=== PATIENT | male | born 1930 | race Two or more races ===

== ENCOUNTER 2016-12-05 18:20 | Inpatient (IN) | payer MEDICARE, MEDICAID ==
[~2016-12-05] VITALS: Ht 170.2 cm; Wt 73.7 kg
[2016-12-05 19:23] LABS: Basophils # (auto) 0.1 uL; Basophils % (auto) 0.7 % (0.0-2.0); CONDITION Y; Eosinophils # (auto) 0.4 uL; Eosinophils % (auto) 5.4 % (0.0-7.0); Hematocrit 40.2 % (41.0-53.0); Hemoglobin 13.6 g/dL (13.5-17.5); Lymphocytes # (auto) 1.7 uL; Lymphocytes % (auto) 23.3 % (10.0-50.0); Mean Corpuscular Hemoglobin 30.6 pg (28.0-32.0); Mean Corpuscular Hgb Conc. 33.9 g/dL (32.0-36.0); Mean Corpuscular Volume 90.5 fL (80.0-100.0); Mean Platelet Volume 7.7 fL (7.4-10.4); Monocytes # (auto) 0.6 uL; Monocytes % (auto) 7.8 % (0.0-12.0); Neutrophils # (auto) 4.7 uL; Neutrophils % (auto) 62.8 % (37.0-80.0); Platelet Count (auto) 360 10^3/uL (140-450); Red Cell Distribution Width 14.5 % (11.6-16.0); White Blood Cell 7.5 10^3/uL (4.4-10.8)
[2016-12-05 19:38] LABS: INR 1.31 (0.9-1.15); Partial Thromboplastin Time 37.4 sec (22.64-33.71)
[2016-12-05 19:39] LABS: Prothrombin Time 14.3 sec (9.37-12.3)
[2016-12-05 19:56] LABS: Albumin 3.6 g/dL (3.4-5.0); BUN/Creatinine Ratio 20.3; Potassium 3.7 mmol/L (3.5-5.1); Total Protein 7.4 g/dL (6.4-8.2)
[2016-12-06] MEDS ORDERED: FURO20TA PO (01:58)
[2016-12-06] MEDS ORDERED: TAMS0.4C36 PO (01:58)
[2016-12-06] MEDS ORDERED: CARV6.2551 PO (01:59)
[2016-12-06] MEDS ORDERED: RIV15T PO (01:59)
[2016-12-06] MEDS ORDERED: DEXTROSE (50%) 50ML SYRG IV PRN (02:15)
[2016-12-06] MEDS ORDERED: ACETAMINOPHEN 325 MG TAB PO PRN (02:15)
[2016-12-06] MEDS ORDERED: HYDROcodone-ACET 5/325MG TAB PO PRN (02:15)
[2016-12-06] MEDS ORDERED: NITROGLYCERIN 0.4 MG SL TAB SL PRN (02:15)
[2016-12-06] MEDS ORDERED: DOCUSATE SOD 100 MG CAP PO PRN (02:15)
[2016-12-06] MEDS ORDERED: TEMAZEPAM 15 MG CAP PO PRN (02:15)
[2016-12-06] MEDS ORDERED: ONDANSETRON HCL 4 MG/2 ML VIAL IV PRN (02:15)
[2016-12-06] MEDS ORDERED: MORPHINE SULF INJ 2 MG/ML SYRINGE 1ML IV PRN (02:15)
[2016-12-06 02:59] LABS: Urine Bilirubin Negative (Negative); Urine Blood Negative /uL (Negative); Urine Color Yellow (Yellow); Urine Glucose Normal (Normal); Urine Ketone Negative (Negative); Urine Mucus FEW (None Seen); Urine Nitrite Negative (Negative); Urine RBC 1 /hpf (0 - 3); Urine Squamous Epithelial Cell FEW /hpf (<5); Urine Urobilinogen Normal (Negative); Urine pH 5.5 (5.0-8.0)
[2016-12-06] MEDS ORDERED: cloNIDine HCL 0.1 MG TAB PO ONE (04:45)
[2016-12-06] MEDS: ACCU-CHEK COMFORT CURVE STRIP VI SCH ×3 (05:38→17:09)
[2016-12-06] MEDS: InsuLIN REG 1unit/0.01ml Soln (100units/ml) SC SCH ×3 (05:38→18:00)
[2016-12-06] MEDS ORDERED: LEVOFLOXACIN 500MG 100 ML IV ONE (09:53)
[2016-12-06] MEDS ORDERED: LEVOFLOXACIN 500MG 100 ML IV SCH ×3 (10:00→11:15)
[2016-12-06] MEDS ORDERED: FAMOTIDINE 20 MG TAB PO SCH (10:00)
[2016-12-06] MEDS ORDERED: ALBUTEROL SULF 2.5 MG/0.5ML(0.5%) NEB SOLN NEB PRN (10:00)
[2016-12-06] MEDS: ALBUTEROL SULF 2.5 MG/0.5ML(0.5%) NEB SOLN NEB SCH ×4 (10:00→23:06)
[2016-12-06] MEDS: IPRATROPIUM BROM 0.5 MG/2.5ML INH SOL NEB SCH ×4 (10:00→23:05)
[2016-12-06] MEDS ORDERED: FUROSEMIDE 20 MG TAB PO SCH (10:00)
[2016-12-06] MEDS ORDERED: IPRATROPIUM BROM 0.5 MG/2.5ML INH SOL NEB PRN (10:00)
[2016-12-06] MEDS ORDERED: ASPirin 81 mg TAB PO ONE (11:45)
[2016-12-06] MEDS ORDERED: CARVEDILOL 3.125 MG TAB PO ONE (11:45)
[2016-12-06] MEDS ORDERED: POTASSIUM CHL 20 Meq TABLET PO ONE (11:45)
[2016-12-06] MEDS ORDERED: NITROGLYCERIN 0.2MG/HR TOPICAL PATCH TD ONE (11:45)
[2016-12-06] MEDS ORDERED: ENALAPRIL MALEATE 2.5 MG TAB PO ONE (11:45)
[2016-12-06 12:08] LABS: B-Type Natriuretic Peptide 80.52 pg/mL (0-100)
[2016-12-06 12:26] LABS: Temperature: 23.7 C (20.0-25.0)
[2016-12-06 16:50] VITALS: BP 163/103
[2016-12-06 17:10] VITALS: BP 163/103
[2016-12-06] MEDS: RIVAROXABAN 15 MG TAB PO SCH (18:34)
[2016-12-06 18:56] VITALS: BP 163/103
[2016-12-06 20:00] VITALS: BP 135/84
[2016-12-06 21:47] VITALS: BP 135/84
[2016-12-06] MEDS: CARVEDILOL 3.125 MG TAB PO SCH (22:50)
[2016-12-07] MEDS: ACCU-CHEK COMFORT CURVE STRIP VI SCH ×3 (00:12→11:08)
[2016-12-07 04:30] VITALS: BP 169/89
[2016-12-07] MEDS: InsuLIN REG 1unit/0.01ml Soln (100units/ml) SC SCH ×3 (06:00→11:08)
[2016-12-07 06:42] LABS: Basophils # (auto) 0.1 uL; Basophils % (auto) 0.6 % (0.0-2.0); CONDITION Y; Eosinophils # (auto) 0.3 uL; Eosinophils % (auto) 3.3 % (0.0-7.0); Hematocrit 41.8 % (41.0-53.0); Hemoglobin 14.1 g/dL (13.5-17.5); Lymphocytes # (auto) 1.9 uL; Lymphocytes % (auto) 18.2 % (10.0-50.0); Mean Corpuscular Hemoglobin 30.5 pg (28.0-32.0); Mean Corpuscular Hgb Conc. 33.8 g/dL (32.0-36.0); Mean Corpuscular Volume 90.1 fL (80.0-100.0); Mean Platelet Volume 7.8 fL (7.4-10.4); Monocytes # (auto) 0.7 uL; Monocytes % (auto) 6.7 % (0.0-12.0); Neutrophils # (auto) 7.4 uL; Neutrophils % (auto) 71.2 % (37.0-80.0); Platelet Count (auto) 340 10^3/uL (140-450); Red Cell Distribution Width 13.9 % (11.6-16.0); White Blood Cell 10.4 10^3/uL (4.4-10.8)
[2016-12-07] MEDS: IPRATROPIUM BROM 0.5 MG/2.5ML INH SOL NEB SCH ×3 (06:43→18:29)
[2016-12-07] MEDS: ALBUTEROL SULF 2.5 MG/0.5ML(0.5%) NEB SOLN NEB SCH ×2 (06:43→12:07)
[2016-12-07 07:07] LABS: Albumin 3.8 g/dL (3.4-5.0); BUN/Creatinine Ratio 18.3; Bilirubin, Total 1.3 mg/dL (0.2-1.0); Calcium 9.2 mg/dL (8.5-10.1); Potassium 3.6 mmol/L (3.5-5.1); Total Protein 7.6 g/dL (6.4-8.2)
[2016-12-07 07:19] LABS: B-Type Natriuretic Peptide 87.03 pg/mL (0-100)
[2016-12-07 07:22] LABS: Temperature: 23.9 C (20.0-25.0)
[2016-12-07 08:00] VITALS: BP 142/92
[2016-12-07] MEDS: CARVEDILOL 3.125 MG TAB PO SCH (09:32)
[2016-12-07] MEDS ORDERED: POTASSIUM CHL 20 Meq TABLET PO SCH (10:00)
[2016-12-07] MEDS ORDERED: NITROGLYCERIN 0.2MG/HR TOPICAL PATCH TD SCH (10:00)
[2016-12-07] MEDS ORDERED: LEVOFLOXACIN 500MG 100 ML IV SCH (10:00)
[2016-12-07] MEDS ORDERED: FUROSEMIDE 40 MG/4 ML VIAL IV SCH (10:00)
[2016-12-07] MEDS ORDERED: ENALAPRIL MALEATE 2.5 MG TAB PO SCH (10:00)
[2016-12-07] MEDS: ASPirin 81 mg TAB PO SCH (10:34)
[2016-12-07] MEDS: FAMOTIDINE 20 MG TAB PO SCH (10:34)
[2016-12-07] MEDS: hydrALAZINE HCL 25 MG TAB PO SCH ×2 (10:37→22:26)
[2016-12-07 12:00] VITALS: BP 132/78
[2016-12-07] MEDS: SODIUM CHLORIDE 0.9% 1,000 ML IV SCH (16:00)
[2016-12-07] MEDS ORDERED: LORazepam 2MG/ML-1ML VIAL IV PRN (16:00)
[2016-12-07 17:20] VITALS: BP 130/74
[2016-12-07] MEDS: TAMSULOSIN HYDROCHLORIDE 0.4 MG CAP PO SCH (18:36)
[2016-12-07] MEDS: RIVAROXABAN 15 MG TAB PO SCH (18:37)
[2016-12-07 22:14] VITALS: BP 147/79
[2016-12-07] MEDS: ATORVASTATIN 20 MG TAB PO SCH (22:26)
[2016-12-08] VITALS (7 sets, daily range): BP systolic 130–152; BP diastolic 70–105
[2016-12-08] MEDS: IPRATROPIUM BROM 0.5 MG/2.5ML INH SOL NEB SCH ×4 (00:13→18:33)
[2016-12-08] MEDS: ALBUTEROL SULF 2.5 MG/0.5ML(0.5%) NEB SOLN NEB SCH ×4 (00:14→18:33)
[2016-12-08 07:23] LABS: Calcium 8.9 mg/dL (8.5-10.1); Magnesium 2.4 mg/dL (1.6-2.6); Potassium 3.3 mmol/L (3.5-5.1)
[2016-12-08] MEDS: FAMOTIDINE 20 MG TAB PO SCH (09:56)
[2016-12-08] MEDS: hydrALAZINE HCL 25 MG TAB PO SCH ×2 (09:56→22:20)
[2016-12-08] MEDS: ASPirin 81 mg TAB PO SCH (09:56)
[2016-12-08] MEDS: SODIUM CHLORIDE 0.9% 1,000 ML IV SCH (11:00)
[2016-12-08] MEDS ORDERED: LEVOFLOXACIN 500MG 100 ML IV SCH (11:15)
[2016-12-08] MEDS ORDERED: POTASSIUM CHL 10 Meq TABLET PO ONE (13:45)
[2016-12-08] MEDS: RIVAROXABAN 15 MG TAB PO SCH (18:36)
[2016-12-08] MEDS: TAMSULOSIN HYDROCHLORIDE 0.4 MG CAP PO SCH (18:36)
[2016-12-08] MEDS: ATORVASTATIN 20 MG TAB PO SCH (22:21)
[2016-12-09] MEDS: ALBUTEROL SULF 2.5 MG/0.5ML(0.5%) NEB SOLN NEB SCH ×4 (00:32→19:05)
[2016-12-09] MEDS: IPRATROPIUM BROM 0.5 MG/2.5ML INH SOL NEB SCH ×4 (00:32→19:05)
[2016-12-09] MEDS: SODIUM CHLORIDE 0.9% 1,000 ML IV SCH (01:20)
[2016-12-09 05:00] VITALS: BP 123/76
[2016-12-09 06:44] LABS: BUN/Creatinine Ratio 23.8; Calcium 8.7 mg/dL (8.5-10.1); Potassium 3.5 mmol/L (3.5-5.1)
[2016-12-09 08:00] VITALS: BP 121/71
[2016-12-09 09:00] VITALS: BP 121/71
[2016-12-09] MEDS: hydrALAZINE HCL 25 MG TAB PO SCH (09:24)
[2016-12-09] MEDS: FAMOTIDINE 20 MG TAB PO SCH (09:24)
[2016-12-09 12:56] VITALS: BP 128/79
[2016-12-09] MEDS ORDERED: HYDR-2651 PO (14:03)
[2016-12-09] MEDS ORDERED: ATOR20TA50 PO (14:03)
[2016-12-09] MEDS ORDERED: FAM20T PO (14:03)
[2016-12-09 15:39] LABS: Temperature: 23.3 C (20.0-25.0)
[2016-12-09 16:27] VITALS: BP 128/79
[2016-12-09 16:56] VITALS: BP 129/93
[2016-12-09] MEDS: RIVAROXABAN 15 MG TAB PO SCH (17:43)
[2016-12-09] MEDS: TAMSULOSIN HYDROCHLORIDE 0.4 MG CAP PO SCH (17:43)
== END 2016-12-09 21:00 | DRG 299 ==
LOC: EDBD 18:20 → ER 18:29 → TELE 18:30 → TELE-CENTR 12-06 13:36
PROVIDERS: ADMIT Nurse Practitioner; ATTEND Internal Medicine
DX: I70.298 Other atherosclerosis of native arteries of extremities, other extremity (principal); N17.0 Acute kidney failure with tubular necrosis; D68.9 Coagulation defect, unspecified; J98.11 Atelectasis; I48.1 Persistent atrial fibrillation; I69.354 Hemiplegia and hemiparesis following cerebral infarction affecting left non-dominant side; M76.892 Other specified enthesopathies of left lower limb, excluding foot; S76.012A Strain of muscle, fascia and tendon of left hip, initial encounter; I48.2 Chronic atrial fibrillation; N18.3 Chronic kidney disease, stage 3 (moderate); J44.9 Chronic obstructive pulmonary disease, unspecified; E11.22 Type 2 diabetes mellitus with diabetic chronic kidney disease; I13.10 Hypertensive heart and chronic kidney disease without heart failure, with stage 1 through stage 4 chronic kidney disease, or unspecified chronic kidney disease; W18.39XA Other fall on same level, initial encounter; I67.2 Cerebral atherosclerosis; G30.9 Alzheimer's disease, unspecified; F02.80 Dementia in other diseases classified elsewhere, unspecified severity, without behavioral disturbance, psychotic disturbance, mood disturbance, and anxiety; Y93.89 Activity, other specified; Z79.01 Long term (current) use of anticoagulants; Z82.49 Family history of ischemic heart disease and other diseases of the circulatory system; Z83.3 Family history of diabetes mellitus; Y92.89 Other specified places as the place of occurrence of the external cause; Y99.8 Other external cause status
CPT/HCPCS: 36415; 70450; 70551; 71010; 73502; 80048; 80053; 80061; 81001; 82550; 82607; 82746; 82962; 83036; 83735; 83880; 84443; 84484; 85025; 85610; 85730; 93005; 93306; 93923; 94640; 94761; 95819; 96365; 97110; 97116; 97163; 97530; J1956

== ENCOUNTER 2017-04-15 16:05 | Emergency (ER) | payer MEDICARE, MEDICAID ==
[~2017-04-15 16:05] MED LIST: ATOR20TA50 PO; FAM20T PO; HYDR25TA35 PO; RIV15T PO; TAMS0.4C36 PO
[2017-04-15 16:55] LABS: Basophils # (auto) 0.1 uL; Basophils % (auto) 1.3 % (0.0-2.0); Eosinophils # (auto) 0.7 uL; Eosinophils % (auto) 7.1 % (0.0-7.0); Hematocrit 43.6 % (41.0-53.0); Hemoglobin 14.3 g/dL (13.5-17.5); Lymphocytes % (auto) 20.4 % (10.0-50.0); Mean Corpuscular Hemoglobin 30.4 pg (28.0-32.0); Mean Corpuscular Hgb Conc. 32.7 g/dL (32.0-36.0); Mean Platelet Volume 8.3 fL (6.9-10.8); Monocytes # (auto) 0.6 uL; Monocytes % (auto) 6.5 % (0.0-12.0); Neutrophils # (auto) 6.3 uL; Neutrophils % (auto) 64.7 % (37.0-80.0); Nucleated Red Blood Cells % 0.1 %; Platelet Count (auto) 310 10^3/uL (140-450); Red Cell Distribution Width 15.7 % (11.8-14.3); White Blood Cell 9.8 10^3/uL (4.4-10.8)
[2017-04-15 17:14] LABS: Albumin 3.7 g/dL (3.4-5.0); BUN/Creatinine Ratio 22.1; Magnesium 2.3 mg/dL (1.6-2.6); Potassium 3.8 mmol/L (3.5-5.1)
[2017-04-15 17:19] LABS: Bilirubin, Total 0.7 mg/dL (0.2-1.0); Total Protein 7.5 g/dL (6.4-8.2)
[2017-04-15 19:50] VITALS: BP 168/92
== END 2017-04-15 20:15 | disposition home or self-care (01) ==
LOC: ER 16:09
DX: I48.91 Unspecified atrial fibrillation (principal); J44.9 Chronic obstructive pulmonary disease, unspecified; E11.9 Type 2 diabetes mellitus without complications; I10 Essential (primary) hypertension; R74.8 Abnormal levels of other serum enzymes; M25.562 Pain in left knee; R42 Dizziness and giddiness; W18.39XA Other fall on same level, initial encounter; Y93.89 Activity, other specified; Y92.89 Other specified places as the place of occurrence of the external cause; Y99.8 Other external cause status; Z86.73 Personal history of transient ischemic attack (TIA), and cerebral infarction without residual deficits; Z79.899 Other long term (current) drug therapy
CPT/HCPCS: 36415; 70450; 72192; 73564; 80053; 81002; 83735; 84484; 85025; 93005

== ENCOUNTER 2017-04-21 18:16 | Emergency (ER) | payer MEDICARE, MEDICAID ==
[~2017-04-21] VITALS: Ht 170.2 cm; Wt 74.8 kg
[2017-04-21 18:29] VITALS: BP 139/76
[2017-04-21 19:48] LABS: Basophils # (auto) 0.1 uL; Basophils % (auto) 1.4 % (0.0-2.0); Eosinophils # (auto) 0.6 uL; Eosinophils % (auto) 7.4 % (0.0-7.0); Hematocrit 43.9 % (41.0-53.0); Hemoglobin 14.4 g/dL (13.5-17.5); Lymphocytes # (auto) 1.4 uL; Lymphocytes % (auto) 17.2 % (10.0-50.0); Mean Corpuscular Hemoglobin 30.3 pg (28.0-32.0); Mean Corpuscular Hgb Conc. 32.9 g/dL (32.0-36.0); Mean Corpuscular Volume 92.2 fL (80.0-100.0); Monocytes # (auto) 0.7 uL; Monocytes % (auto) 8.8 % (0.0-12.0); Neutrophils # (auto) 5.2 uL; Neutrophils % (auto) 65.2 % (37.0-80.0); Platelet Count (auto) 264 10^3/uL (140-450); Red Cell Distribution Width 14.8 % (11.8-14.3)
[2017-04-21 20:19] LABS: Albumin 3.8 g/dL (3.4-5.0); BUN/Creatinine Ratio 20.1; Bilirubin, Total 0.7 mg/dL (0.2-1.0); Calcium 8.8 mg/dL (8.5-10.1); Magnesium 2.4 mg/dL (1.6-2.6); Potassium 3.7 mmol/L (3.5-5.1); Total Protein 7.4 g/dL (6.4-8.2)
[2017-04-24] MEDS ORDERED: PRE1T PO (23:40)
[2017-04-24] MEDS ORDERED: ALBUAER3 IN (23:41)
[2017-04-24] MEDS ORDERED: DOXY-112 PO (23:43)
[2017-04-24] MEDS ORDERED: DOXY100C41 PO (23:43)
[2017-04-24] MEDS ORDERED: TIOTCAP IN (23:47)
== END 2017-04-22 00:10 | disposition left against medical advice (07) ==
LOC: ER 18:16
DX: R05 Cough (principal); R09.81 Nasal congestion; Z53.21 Procedure and treatment not carried out due to patient leaving prior to being seen by health care provider
CPT/HCPCS: 36415; 71010; 80053; 83735; 84484; 85025

== ENCOUNTER 2017-04-30 15:36 | Emergency (ER) | payer MEDICARE, MEDICAID ==
[~2017-04-30] VITALS: Ht 185.4 cm; Wt 90.7 kg
[~2017-04-30 15:36] MED LIST changes: +ALBUAER3 IN; +DOXY-112 PO; +PRE1T PO; +TIOTCAP IN
[2017-04-30 18:15] VITALS: BP 123/62
== END 2017-04-30 18:16 | disposition home or self-care (01) ==
LOC: EDBD 15:36 → ER 15:40
DX: R53.1 Weakness (principal); I48.91 Unspecified atrial fibrillation; J44.9 Chronic obstructive pulmonary disease, unspecified; N18.9 Chronic kidney disease, unspecified; I12.9 Hypertensive chronic kidney disease with stage 1 through stage 4 chronic kidney disease, or unspecified chronic kidney disease; E11.22 Type 2 diabetes mellitus with diabetic chronic kidney disease; I25.2 Old myocardial infarction; Z86.73 Personal history of transient ischemic attack (TIA), and cerebral infarction without residual deficits; Z79.899 Other long term (current) drug therapy

== ENCOUNTER 2017-07-04 22:00 | Inpatient (IN) | payer MEDICARE, MEDICAID ==
[~2017-07-04] VITALS: Ht 167.6 cm; Wt 77.1 kg
[2017-07-04 23:28] LABS: Basophils # (auto) 0.1 uL; Basophils % (auto) 0.9 % (0.0-2.0); Eosinophils # (auto) 0.1 uL; Eosinophils % (auto) 0.8 % (0.0-7.0); Hematocrit 39.4 % (41.0-53.0); Hemoglobin 13.2 g/dL (13.5-17.5); Lymphocytes # (auto) 1.4 uL; Lymphocytes % (auto) 10.5 % (10.0-50.0); Mean Corpuscular Hemoglobin 30.3 pg (28.0-32.0); Mean Corpuscular Hgb Conc. 33.4 g/dL (32.0-36.0); Mean Corpuscular Volume 90.7 fL (80.0-100.0); Monocytes # (auto) 0.8 uL; Monocytes % (auto) 6.2 % (0.0-12.0); Neutrophils # (auto) 10.8 uL; Neutrophils % (auto) 81.6 % (37.0-80.0); Platelet Count (auto) 281 10^3/uL (140-450); Red Blood Cells 4.35 10^6/uL (4.5-5.90); Red Cell Distribution Width 15.8 % (11.8-14.3); White Blood Cell 13.2 10^3/uL (4.4-10.8)
[2017-07-04 23:43] LABS: INR 1.15 (0.9-1.15); Partial Thromboplastin Time 38.9 sec (22.64-33.71); Prothrombin Time 12.5 sec (9.37-12.3)
[2017-07-04 23:49] LABS: Albumin 3.9 g/dL (3.4-5.0); Anion Gap 11 (5-15); Aspartate Aminotransferase 26 U/L (15-37); BUN/Creatinine Ratio 19.6; Blood Urea Nitrogen 30 mg/dL (7-18); Calcium 8.6 mg/dL (8.5-10.1); Carbon Dioxide 21 mmol/L (21-32); Chloride 105 mmol/L (98-107); GFR African American 56 mL/min; GFR Non-African American 46 mL/min; Glucose 102 mg/dL (74-106); Magnesium 1.9 mg/dL (1.6-2.6); Potassium 3.3 mmol/L (3.5-5.1); Sodium 137 mmol/L (136-145)
[2017-07-05 00:13] LABS: Alanine Aminotransferase 29 U/L (16-61); Alkaline Phosphatase 99 U/L (45-117); Bilirubin, Total 1.4 mg/dL (0.2-1.0); Blood Alcohol < 3.0 mg/dL (0-5); Total Protein 7.8 g/dL (6.4-8.2)
[2017-07-05 03:15] LABS: Urine Bacteria FEW /hpf (None Seen); Urine Blood Negative /uL (Negative); Urine Specific Gravity 1.016 (1.001-1.035); Urine WBC 1 /hpf (0 - 3)
[2017-07-05 03:31] LABS: Alcohol, Urine < 3.0 mg/dL (0-5); Amphetamine Screen, Urine NEGATIVE (NEGATIVE); Barbiturate Scree,Urine NEGATIVE (NEGATIVE); Benzodiazephine Screen, Urine NEGATIVE (NEGATIVE); Cannabinoid Screen, Urine NEGATIVE (NEGATIVE); Cocaine Screen, Urine NEGATIVE (NEGATIVE); Opiate Scree,Urine NEGATIVE (NEGATIVE); Phencyclidine Screen, Urine NEGATIVE (NEGATIVE)
[2017-07-05] MEDS ORDERED: cefTRIAXone 1GM/10ml IVPUSH 10 ML IV ONE (08:00)
[2017-07-05] MEDS ORDERED: AZITHROMYCIN 500MG/ 250ML 250 ML IV ONE (08:00)
[2017-07-05] MEDS ORDERED: ENOXAPARIN SOD 80 MG/0.8ML SYRINGE SC ONE (08:00)
[2017-07-05] MEDS ORDERED: POTASSIUM CHL 10% (20 MEQ/15ML) 15ml ORAL SOLN PO ONE (08:00)
[2017-07-05] MEDS ORDERED: DEXTROSE (50%) 50ML SYRG IV PRN (09:00)
[2017-07-05] MEDS ORDERED: MORPHINE SULFATE 4 MG/ML SYR/VIAL IV PRN ×2 (09:15)
[2017-07-05] MEDS ORDERED: NITROGLYCERIN 0.4 MG SL TAB SL PRN (09:15)
[2017-07-05] MEDS ORDERED: cloNIDine HCL 0.1 MG TAB PO PRN (09:15)
[2017-07-05] MEDS ORDERED: DOCUSATE SOD 100 MG CAP PO PRN (09:15)
[2017-07-05] MEDS ORDERED: ONDANSETRON HCL 4 MG/2 ML VIAL IV PRN (09:15)
[2017-07-05] MEDS ORDERED: buPROPion HCL 100 MG TAB PO ONE (09:15)
[2017-07-05] MEDS ORDERED: HYDROcodone-ACET 5/325MG TAB PO PRN (09:15)
[2017-07-05] MEDS ORDERED: ACETAMINOPHEN 325 MG TAB PO PRN (09:15)
[2017-07-05] MEDS ORDERED: PATIENTS OWN MEDICATION PO SCH (10:00)
[2017-07-05] MEDS ORDERED: FAMOTIDINE 20 MG TAB PO SCH (10:00)
[2017-07-05] MEDS ORDERED: PATIENTS OWN MEDICATION IN SCH (10:00)
[2017-07-05] MEDS: methylPREDNISolone SOD SUCC 40 MG/ML VL IV SCH ×3 (10:25→22:07)
[2017-07-05] MEDS: FAMOTIDINE 20 MG TAB PO SCH (10:25)
[2017-07-05] MEDS: MULTIPLE VITAMIN TAB PO SCH (10:25)
[2017-07-05] MEDS: InsuLIN REG 1unit/0.01ml Soln (100units/ml) SC SCH ×3 (11:30→23:15)
[2017-07-05] MEDS: ACCU-CHEK COMFORT CURVE STRIP VI SCH ×3 (11:45→23:15)
[2017-07-05] MEDS: ALBUTEROL SULF 2.5 MG/0.5ML(0.5%) NEB SOLN NEB SCH ×2 (13:07→19:30)
[2017-07-05] MEDS: IPRATROPIUM BROM 0.5 MG/2.5ML INH SOL NEB SCH ×2 (13:07→19:30)
[2017-07-05] MEDS: SODIUM CHLOR 0.9% PF (SALINE LOCK) 10ML VIAL IV SCH ×2 (14:00→22:07)
[2017-07-05 15:12] LABS: BUN/Creatinine Ratio 15.1; Calcium 8.7 mg/dL (8.5-10.1); Potassium 4.2 mmol/L (3.5-5.1)
[2017-07-05] MEDS: TAMSULOSIN HYDROCHLORIDE 0.4 MG CAP PO SCH (17:44)
[2017-07-05] MEDS: buPROPion HCL 100 MG TAB PO SCH (17:45)
[2017-07-05] MEDS: RIVAROXABAN 15 MG TAB PO SCH (17:45)
[2017-07-05] MEDS ORDERED: HYDR50TA15 PO (18:26)
[2017-07-05] MEDS ORDERED: TAMS0.4C36 PO (18:26)
[2017-07-05] MEDS ORDERED: ATOR20TA50 PO (18:26)
[2017-07-05] MEDS ORDERED: FAMO-12 PO (18:26)
[2017-07-05] MEDS ORDERED: TIOTCAP IN (18:26)
[2017-07-05] MEDS ORDERED: RIVA15TA PO (18:26)
[2017-07-05] MEDS: ATORVASTATIN 20 MG TAB PO SCH (22:07)
[2017-07-05 22:20] VITALS: BP 126/80
[2017-07-05 23:17] VITALS: BP 126/80
[2017-07-06] VITALS (7 sets, daily range): BP systolic 112–150; BP diastolic 66–88
[2017-07-06] MEDS: ALBUTEROL SULF 2.5 MG/0.5ML(0.5%) NEB SOLN NEB SCH ×4 (00:41→19:04)
[2017-07-06] MEDS: IPRATROPIUM BROM 0.5 MG/2.5ML INH SOL NEB SCH ×4 (00:41→19:04)
[2017-07-06] MEDS: methylPREDNISolone SOD SUCC 40 MG/ML VL IV SCH ×4 (04:03→21:35)
[2017-07-06] MEDS: SODIUM CHLOR 0.9% PF (SALINE LOCK) 10ML VIAL IV SCH ×3 (05:35→21:35)
[2017-07-06] MEDS: buPROPion HCL 100 MG TAB PO SCH ×2 (06:13→17:58)
[2017-07-06] MEDS: InsuLIN REG 1unit/0.01ml Soln (100units/ml) SC SCH ×4 (06:14→21:41)
[2017-07-06] MEDS: ACCU-CHEK COMFORT CURVE STRIP VI SCH ×4 (06:15→21:35)
[2017-07-06 06:55] LABS: Basophils # (auto) 0 uL; Basophils % (auto) 0.3 % (0.0-2.0); Eosinophils # (auto) 0 uL; Hematocrit 36.4 % (41.0-53.0); Hemoglobin 12.1 g/dL (13.5-17.5); Lymphocytes # (auto) 0.6 uL; Lymphocytes % (auto) 4.9 % (10.0-50.0); Mean Corpuscular Hemoglobin 30.2 pg (28.0-32.0); Mean Corpuscular Hgb Conc. 33.2 g/dL (32.0-36.0); Mean Corpuscular Volume 90.9 fL (80.0-100.0); Monocytes # (auto) 0.2 uL; Monocytes % (auto) 1.2 % (0.0-12.0); Neutrophils # (auto) 12.3 uL; Neutrophils % (auto) 93.6 % (37.0-80.0); Platelet Count (auto) 282 10^3/uL (140-450); Red Blood Cells 4.01 10^6/uL (4.5-5.90); Red Cell Distribution Width 15.4 % (11.8-14.3); White Blood Cell 13.1 10^3/uL (4.4-10.8)
[2017-07-06 07:11] LABS: Albumin 3.2 g/dL (3.4-5.0); BUN/Creatinine Ratio 21.2; Potassium 3.5 mmol/L (3.5-5.1)
[2017-07-06 07:14] LABS: Bilirubin, Total 0.8 mg/dL (0.2-1.0)
[2017-07-06] MEDS: MULTIPLE VITAMIN TAB PO SCH (09:01)
[2017-07-06] MEDS: FAMOTIDINE 20 MG TAB PO SCH (09:01)
[2017-07-06] MEDS: cefTRIAXone 1GM/10ml IVPUSH 10 ML IV SCH (09:01)
[2017-07-06] MEDS: AZITHROMYCIN 500MG/ 250ML 250 ML IV SCH (09:02)
[2017-07-06] MEDS ORDERED: ADENOSINE 65 MG in GIVE UN-DILUTED 0 ML IV ONE ×2 (13:15→14:30)
[2017-07-06] MEDS: TAMSULOSIN HYDROCHLORIDE 0.4 MG CAP PO SCH (17:58)
[2017-07-06] MEDS: RIVAROXABAN 15 MG TAB PO SCH (17:58)
[2017-07-06] MEDS: ATORVASTATIN 20 MG TAB PO SCH (21:35)
[2017-07-07] MEDS: IPRATROPIUM BROM 0.5 MG/2.5ML INH SOL NEB SCH ×3 (00:46→11:09)
[2017-07-07] MEDS: ALBUTEROL SULF 2.5 MG/0.5ML(0.5%) NEB SOLN NEB SCH ×3 (00:46→11:09)
[2017-07-07] MEDS: methylPREDNISolone SOD SUCC 40 MG/ML VL IV SCH ×3 (04:13→17:07)
[2017-07-07 04:58] VITALS: BP 133/77
[2017-07-07] MEDS: SODIUM CHLOR 0.9% PF (SALINE LOCK) 10ML VIAL IV SCH ×2 (05:45→09:34)
[2017-07-07] MEDS: InsuLIN REG 1unit/0.01ml Soln (100units/ml) SC SCH ×3 (06:39→17:10)
[2017-07-07] MEDS: buPROPion HCL 100 MG TAB PO SCH ×2 (06:39→18:23)
[2017-07-07] MEDS: ACCU-CHEK COMFORT CURVE STRIP VI SCH ×3 (06:39→17:07)
[2017-07-07 08:00] VITALS: BP 114/67
[2017-07-07] MEDS: MULTIPLE VITAMIN TAB PO SCH (09:32)
[2017-07-07] MEDS: FAMOTIDINE 20 MG TAB PO SCH (09:32)
[2017-07-07] MEDS: AZITHROMYCIN 500MG/ 250ML 250 ML IV SCH (09:34)
[2017-07-07] MEDS: cefTRIAXone 1GM/10ml IVPUSH 10 ML IV SCH (09:35)
[2017-07-07 09:40] VITALS: BP 114/67
[2017-07-07 10:29] VITALS: BP 114/67
[2017-07-07] MEDS: RIVAROXABAN 15 MG TAB PO SCH (17:18)
[2017-07-07] MEDS: TAMSULOSIN HYDROCHLORIDE 0.4 MG CAP PO SCH (17:19)
== END 2017-07-07 18:30 | disposition home or self-care (01) | DRG 871 ==
LOC: ER 22:00 → EDBD 22:00 → EDUNIT# 22:00 → TELE 22:01 → TELE-CENTR 07-05 14:16
PROVIDERS: ADMIT Internal Medicine; ATTEND Family Medicine
DX: A41.9 Sepsis, unspecified organism (principal); G92 Toxic encephalopathy; J18.9 Pneumonia, unspecified organism; D68.69 Other thrombophilia; E11.21 Type 2 diabetes mellitus with diabetic nephropathy; I48.1 Persistent atrial fibrillation; I69.354 Hemiplegia and hemiparesis following cerebral infarction affecting left non-dominant side; I48.92 Unspecified atrial flutter; J45.901 Unspecified asthma with (acute) exacerbation; N39.0 Urinary tract infection, site not specified; J44.0 Chronic obstructive pulmonary disease with (acute) lower respiratory infection; J44.1 Chronic obstructive pulmonary disease with (acute) exacerbation; E11.22 Type 2 diabetes mellitus with diabetic chronic kidney disease; D63.8 Anemia in other chronic diseases classified elsewhere; E87.6 Hypokalemia; F32.9 Major depressive disorder, single episode, unspecified; I12.9 Hypertensive chronic kidney disease with stage 1 through stage 4 chronic kidney disease, or unspecified chronic kidney disease; B96.20 Unspecified Escherichia coli [E. coli] as the cause of diseases classified elsewhere; B96.4 Proteus (mirabilis) (morganii) as the cause of diseases classified elsewhere; I25.10 Atherosclerotic heart disease of native coronary artery without angina pectoris; J20.9 Acute bronchitis, unspecified; N18.3 Chronic kidney disease, stage 3 (moderate); R74.8 Abnormal levels of other serum enzymes; Z79.01 Long term (current) use of anticoagulants; Z79.4 Long term (current) use of insulin; I25.2 Old myocardial infarction; Z82.49 Family history of ischemic heart disease and other diseases of the circulatory system; Z83.3 Family history of diabetes mellitus; Z79.899 Other long term (current) drug therapy
CPT/HCPCS: 36415; 70450; 71045; 80048; 80053; 80307; 80320; 81001; 82962; 83036; 83605; 83735; 83880; 84443; 84484; 85025; 85610; 85730; 87040; 87086; 87088; 87186; 87804; 93005; 93017; 93306; 94640; 96365; 96372; 96375; 97163; J0153; J1815

== ENCOUNTER 2017-09-23 15:57 | Inpatient (IN) | payer MEDICARE, MEDICAID ==
[~2017-09-23] VITALS: Ht 165.1 cm; Wt 70.8 kg
[~2017-09-23 15:57] MED LIST changes: +FAMO-12 PO; +HYDR50TA15 PO; +RIVA15TA PO
[2017-09-23 17:13] LABS: Basophils # (auto) 0 uL; Basophils % (auto) 0.2 % (0.0-2.0); Eosinophils # (auto) 0 uL; Hematocrit 41.3 % (41.0-53.0); Hemoglobin 13.7 g/dL (13.5-17.5); Lymphocytes # (auto) 0.4 uL; Lymphocytes % (auto) 2.1 % (10.0-50.0); Mean Corpuscular Hemoglobin 30.5 pg (28.0-32.0); Mean Corpuscular Hgb Conc. 33.2 g/dL (32.0-36.0); Mean Corpuscular Volume 91.9 fL (80.0-100.0); Monocytes # (auto) 1.1 uL; Monocytes % (auto) 5.3 % (0.0-12.0); Neutrophils # (auto) 18.8 uL; Neutrophils % (auto) 92.4 % (37.0-80.0); Nucleated Red Blood Cells % 0.2 %; Platelet Count (auto) 227 10^3/uL (140-450); Red Cell Distribution Width 15.2 % (11.8-14.3); White Blood Cell 20.4 10^3/uL (4.4-10.8)
[2017-09-23 17:25] LABS: Albumin 3.8 g/dL (3.4-5.0); BUN/Creatinine Ratio 16.1; Calcium 8.7 mg/dL (8.5-10.1)
[2017-09-23 17:28] LABS: Bilirubin, Total 2.1 mg/dL (0.2-1.0); Potassium 3.4 mmol/L (3.5-5.1); Total Protein 7.6 g/dL (6.4-8.2)
[2017-09-23] MEDS ORDERED: SODIUM CHLORIDE 0.9% 500 ML IVB ONE (20:57)
[2017-09-23] MEDS ORDERED: LEVOFLOXACIN 500MG 100 ML IV ONE (21:00)
[2017-09-23] MEDS ORDERED: TEMAZEPAM 15 MG CAP PO PRN (23:15)
[2017-09-23] MEDS ORDERED: MORPHINE SULFATE 4 MG/ML SYR/VIAL IV PRN (23:15)
[2017-09-23] MEDS ORDERED: ONDANSETRON HCL 4 MG/2 ML VIAL IV PRN (23:15)
[2017-09-23] MEDS ORDERED: NITROGLYCERIN 0.4 MG SL TAB SL PRN (23:15)
[2017-09-23] MEDS ORDERED: ALBUTEROL SULF 2.5 MG/0.5ML(0.5%) NEB SOLN NEB PRN (23:15)
[2017-09-23] MEDS ORDERED: DEXTROSE (50%) 50ML SYRG IV PRN (23:15)
[2017-09-23] MEDS ORDERED: cloNIDine HCL 0.1 MG TAB PO PRN (23:15)
[2017-09-23 23:19] VITALS: BP 156/95
[2017-09-24] VITALS (9 sets, daily range): BP systolic 123–157; BP diastolic 53–90
[2017-09-24] MEDS: ACCU-CHEK COMFORT CURVE STRIP VI SCH ×2 (01:34→06:32)
[2017-09-24] MEDS: InsuLIN REG 1unit/0.01ml Soln (100units/ml) SC SCH ×2 (06:00)
[2017-09-24 06:34] LABS: Basophils # (auto) 0.1 uL; Basophils % (auto) 0.3 % (0.0-2.0); Eosinophils # (auto) 0 uL; Hematocrit 38.9 % (41.0-53.0); Hemoglobin 12.8 g/dL (13.5-17.5); Lymphocytes # (auto) 0.9 uL; Lymphocytes % (auto) 4.1 % (10.0-50.0); Mean Corpuscular Hemoglobin 30.5 pg (28.0-32.0); Mean Corpuscular Volume 92.5 fL (80.0-100.0); Monocytes # (auto) 1.2 uL; Monocytes % (auto) 5.5 % (0.0-12.0); Neutrophils # (auto) 19.9 uL; Neutrophils % (auto) 90.1 % (37.0-80.0); Nucleated Red Blood Cells % 0.1 %; Platelet Count (auto) 195 10^3/uL (140-450); Red Blood Cells 4.21 10^6/uL (4.5-5.90); Red Cell Distribution Width 15.5 % (11.8-14.3); White Blood Cell 22.2 10^3/uL (4.4-10.8)
[2017-09-24] MEDS ORDERED: ALBUAER3 IN (06:50)
[2017-09-24 07:05] LABS: Albumin 3.4 g/dL (3.4-5.0); Calcium 8.9 mg/dL (8.5-10.1); Potassium 3.6 mmol/L (3.5-5.1)
[2017-09-24 07:09] LABS: Bilirubin, Total 2.3 mg/dL (0.2-1.0); Total Protein 7.1 g/dL (6.4-8.2)
[2017-09-24] MEDS ORDERED: ENOXAPARIN SOD 30 MG/0.3 ML SYRINGE SC SCH (10:00)
[2017-09-24] MEDS ORDERED: cefTRIAXone 1GM/10ml IVPUSH 10 ML IV ONE (11:00)
[2017-09-24] MEDS: hydrALAZINE HCL 25 MG TAB PO SCH ×2 (11:41→23:38)
[2017-09-24] MEDS: PANTOPRAZOLE 40 MG TAB PO SCH (11:42)
[2017-09-24] MEDS: RIVAROXABAN 15 MG TAB PO SCH (18:29)
[2017-09-24] MEDS: TAMSULOSIN HYDROCHLORIDE 0.4 MG CAP PO SCH (18:29)
[2017-09-24] MEDS ORDERED: LEVOFLOXACIN 250MG 50 ML IV SCH (22:00)
[2017-09-24] MEDS: ATORVASTATIN 20 MG TAB PO SCH (23:37)
[2017-09-25 05:49] VITALS: BP 100/59
[2017-09-25 06:24] LABS: BUN/Creatinine Ratio 17.7; Basophils # (auto) 0 uL; Basophils % (auto) 0.2 % (0.0-2.0); Calcium 8.4 mg/dL (8.5-10.1); Eosinophils # (auto) 0 uL; Eosinophils % (auto) 0.2 % (0.0-7.0); Hematocrit 37.1 % (41.0-53.0); Hemoglobin 12.6 g/dL (13.5-17.5); Lymphocytes % (auto) 5.1 % (10.0-50.0); Mean Corpuscular Hemoglobin 31.2 pg (28.0-32.0); Mean Corpuscular Hgb Conc. 34.1 g/dL (32.0-36.0); Mean Corpuscular Volume 91.7 fL (80.0-100.0); Monocytes # (auto) 1.2 uL; Monocytes % (auto) 6.2 % (0.0-12.0); Neutrophils # (auto) 17.6 uL; Neutrophils % (auto) 88.3 % (37.0-80.0); Nucleated Red Blood Cells % 0.1 %; Platelet Count (auto) 175 10^3/uL (140-450); Potassium 3.2 mmol/L (3.5-5.1); Red Blood Cells 4.05 10^6/uL (4.5-5.90); Red Cell Distribution Width 15.1 % (11.8-14.3)
[2017-09-25] MEDS ORDERED: POTASSIUM CHL 20 Meq TABLET PO ONE (08:45)
[2017-09-25 09:00] VITALS: BP 118/80
[2017-09-25] MEDS: hydrALAZINE HCL 25 MG TAB PO SCH ×2 (10:24→21:42)
[2017-09-25] MEDS: PANTOPRAZOLE 40 MG TAB PO SCH (10:25)
[2017-09-25 11:15] LABS: Urine Bacteria FEW /hpf (None Seen); Urine Blood 3+ /uL (Negative); Urine Mucus FEW (None Seen); Urine Specific Gravity 1.021 (1.001-1.035); Urine WBC 603 /hpf (0 - 3); Urine WBC Clumps PRESENT /hpf (None Seen)
[2017-09-25 13:00] VITALS: BP 97/62
[2017-09-25] MEDS: cefTRIAXone 1GM/10ml IVPUSH 10 ML IV SCH (13:58)
[2017-09-25 16:58] VITALS: BP 140/94
[2017-09-25] MEDS: TAMSULOSIN HYDROCHLORIDE 0.4 MG CAP PO SCH (18:13)
[2017-09-25] MEDS: HYDROcodone-ACET 5/325MG TAB PO PRN (18:13)
[2017-09-25] MEDS: RIVAROXABAN 15 MG TAB PO SCH (18:17)
[2017-09-25] MEDS: ATORVASTATIN 20 MG TAB PO SCH (21:42)
[2017-09-25 22:00] VITALS: BP 137/69
[2017-09-26] VITALS (7 sets, daily range): BP systolic 115–153; BP diastolic 65–93
[2017-09-26 07:15] LABS: Basophils # (auto) 0.1 uL; Basophils % (auto) 0.5 % (0.0-2.0); Eosinophils # (auto) 0 uL; Eosinophils % (auto) 0.3 % (0.0-7.0); Hematocrit 38.7 % (41.0-53.0); Hemoglobin 12.9 g/dL (13.5-17.5); Lymphocytes # (auto) 0.5 uL; Lymphocytes % (auto) 3.2 % (10.0-50.0); Mean Corpuscular Hemoglobin 30.6 pg (28.0-32.0); Mean Corpuscular Hgb Conc. 33.4 g/dL (32.0-36.0); Mean Corpuscular Volume 91.5 fL (80.0-100.0); Monocytes % (auto) 5.8 % (0.0-12.0); Neutrophils # (auto) 14.9 uL; Neutrophils % (auto) 90.2 % (37.0-80.0); Nucleated Red Blood Cells % 0.1 %; Platelet Count (auto) 206 10^3/uL (140-450); Red Blood Cells 4.23 10^6/uL (4.5-5.90); Red Cell Distribution Width 14.8 % (11.8-14.3); White Blood Cell 16.6 10^3/uL (4.4-10.8)
[2017-09-26 07:39] LABS: BUN/Creatinine Ratio 26.9; Calcium 9.1 mg/dL (8.5-10.1); Potassium 3.3 mmol/L (3.5-5.1)
[2017-09-26] MEDS: PANTOPRAZOLE 40 MG TAB PO SCH (09:28)
[2017-09-26] MEDS: cefTRIAXone 1GM/10ml IVPUSH 10 ML IV SCH (09:28)
[2017-09-26] MEDS: hydrALAZINE HCL 25 MG TAB PO SCH ×2 (09:31→22:10)
[2017-09-26] MEDS ORDERED: POTASSIUM CHL 20 Meq TABLET PO ONE (11:00)
[2017-09-26] MEDS: RIVAROXABAN 15 MG TAB PO SCH (17:50)
[2017-09-26] MEDS: TAMSULOSIN HYDROCHLORIDE 0.4 MG CAP PO SCH (17:50)
[2017-09-26] MEDS: ATORVASTATIN 20 MG TAB PO SCH (22:10)
[2017-09-27 05:00] VITALS: BP 122/70
[2017-09-27 08:00] VITALS: BP 115/68
[2017-09-27 08:05] LABS: Basophils # (auto) 0 uL; Basophils % (auto) 0.4 % (0.0-2.0); Eosinophils # (auto) 0.2 uL; Eosinophils % (auto) 2.2 % (0.0-7.0); Hematocrit 37.1 % (41.0-53.0); Hemoglobin 12.1 g/dL (13.5-17.5); Lymphocytes # (auto) 0.9 uL; Lymphocytes % (auto) 8.3 % (10.0-50.0); Mean Corpuscular Hgb Conc. 32.6 g/dL (32.0-36.0); Mean Corpuscular Volume 91.8 fL (80.0-100.0); Monocytes # (auto) 1.1 uL; Neutrophils # (auto) 8.9 uL; Neutrophils % (auto) 79.1 % (37.0-80.0); Platelet Count (auto) 213 10^3/uL (140-450); Red Blood Cells 4.05 10^6/uL (4.5-5.90); Red Cell Distribution Width 15.2 % (11.8-14.3); White Blood Cell 11.3 10^3/uL (4.4-10.8)
[2017-09-27 08:15] LABS: BUN/Creatinine Ratio 24.6; Calcium 8.5 mg/dL (8.5-10.1); Potassium 3.7 mmol/L (3.5-5.1)
[2017-09-27 08:20] VITALS: BP 115/68
[2017-09-27] MEDS: PANTOPRAZOLE 40 MG TAB PO SCH ×2 (09:19→09:22)
[2017-09-27] MEDS: hydrALAZINE HCL 25 MG TAB PO SCH ×3 (09:19→22:00)
[2017-09-27] MEDS: cefTRIAXone 1GM/10ml IVPUSH 10 ML IV SCH (09:19)
[2017-09-27 12:28] VITALS: BP 113/81
[2017-09-27] MEDS: HYDROcodone-ACET 5/325MG TAB PO PRN (15:35)
[2017-09-27 16:36] VITALS: BP 119/70
[2017-09-27] MEDS: TAMSULOSIN HYDROCHLORIDE 0.4 MG CAP PO SCH (18:16)
[2017-09-27] MEDS: RIVAROXABAN 15 MG TAB PO SCH (18:16)
[2017-09-27] MEDS: ACETAMINOPHEN 325 MG TAB PO PRN (18:16)
[2017-09-27 22:00] VITALS: BP 104/71
[2017-09-27] MEDS: ATORVASTATIN 20 MG TAB PO SCH (22:02)
[2017-09-28 05:15] VITALS: BP 127/82
[2017-09-28 07:38] LABS: Basophils # (auto) 0.1 uL; Basophils % (auto) 0.9 % (0.0-2.0); Eosinophils # (auto) 0.3 uL; Eosinophils % (auto) 3.2 % (0.0-7.0); Hemoglobin 12.4 g/dL (13.5-17.5); Mean Corpuscular Hemoglobin 30.8 pg (28.0-32.0); Mean Corpuscular Hgb Conc. 33.6 g/dL (32.0-36.0); Mean Corpuscular Volume 91.8 fL (80.0-100.0); Monocytes % (auto) 10.3 % (0.0-12.0); Neutrophils # (auto) 6.9 uL; Neutrophils % (auto) 74.6 % (37.0-80.0); Nucleated Red Blood Cells % 0.1 %; Platelet Count (auto) 234 10^3/uL (140-450); Red Blood Cells 4.04 10^6/uL (4.5-5.90); Red Cell Distribution Width 15.2 % (11.8-14.3); White Blood Cell 9.2 10^3/uL (4.4-10.8)
[2017-09-28 07:51] LABS: BUN/Creatinine Ratio 26.3; Calcium 8.5 mg/dL (8.5-10.1); Potassium 3.4 mmol/L (3.5-5.1)
[2017-09-28 08:00] VITALS: BP 127/79
[2017-09-28] MEDS: cefTRIAXone 1GM/10ml IVPUSH 10 ML IV SCH (09:07)
[2017-09-28] MEDS: PANTOPRAZOLE 40 MG TAB PO SCH (09:07)
[2017-09-28] MEDS: hydrALAZINE HCL 25 MG TAB PO SCH ×2 (09:08→22:39)
[2017-09-28] MEDS ORDERED: POTASSIUM CHL 20 Meq TABLET PO ONE (10:00)
[2017-09-28] MEDS: HYDROcodone-ACET 5/325MG TAB PO PRN (11:19)
[2017-09-28 12:34] VITALS: BP 109/53
[2017-09-28] MEDS: ACETAMINOPHEN 325 MG TAB PO PRN (13:19)
[2017-09-28 16:38] VITALS: BP 140/99
[2017-09-28] MEDS: TAMSULOSIN HYDROCHLORIDE 0.4 MG CAP PO SCH (17:08)
[2017-09-28] MEDS: RIVAROXABAN 15 MG TAB PO SCH (17:08)
[2017-09-28 22:00] VITALS: BP 142/84
[2017-09-28] MEDS: ATORVASTATIN 20 MG TAB PO SCH (22:39)
[2017-09-29 05:14] VITALS: BP 136/77
[2017-09-29 07:09] LABS: BUN/Creatinine Ratio 22.2; Calcium 8.5 mg/dL (8.5-10.1); Potassium 3.4 mmol/L (3.5-5.1)
[2017-09-29 08:00] VITALS: BP 133/85
[2017-09-29 08:26] VITALS: BP 133/85
[2017-09-29] MEDS: cefTRIAXone 1GM/10ml IVPUSH 10 ML IV SCH (09:11)
[2017-09-29] MEDS: hydrALAZINE HCL 25 MG TAB PO SCH (09:11)
[2017-09-29] MEDS: PANTOPRAZOLE 40 MG TAB PO SCH (09:11)
[2017-09-29 12:17] VITALS: BP 133/85
[2017-09-29 13:00] VITALS: BP 132/70
[2017-09-29 13:06] VITALS: BP 133/85
[2017-09-29] MEDS: TAMSULOSIN HYDROCHLORIDE 0.4 MG CAP PO SCH (17:14)
[2017-09-29] MEDS: RIVAROXABAN 15 MG TAB PO SCH (17:15)
== END 2017-09-29 17:55 | disposition home health service (06) | DRG 871 ==
LOC: ER 16:00 → TELE 16:01 → CENTRAL 23:42 → TELE-CENTR 09-25 22:12 → CENTRAL 09-27 15:49
PROVIDERS: ADMIT Nurse Practitioner; ATTEND Internal Medicine
DX: A41.9 Sepsis, unspecified organism (principal); G93.41 Metabolic encephalopathy; N17.0 Acute kidney failure with tubular necrosis; E11.22 Type 2 diabetes mellitus with diabetic chronic kidney disease; I48.2 Chronic atrial fibrillation; D68.69 Other thrombophilia; N18.3 Chronic kidney disease, stage 3 (moderate); N39.0 Urinary tract infection, site not specified; I12.9 Hypertensive chronic kidney disease with stage 1 through stage 4 chronic kidney disease, or unspecified chronic kidney disease; F03.90 Unspecified dementia, unspecified severity, without behavioral disturbance, psychotic disturbance, mood disturbance, and anxiety; N40.0 Benign prostatic hyperplasia without lower urinary tract symptoms; Z82.49 Family history of ischemic heart disease and other diseases of the circulatory system; Z86.73 Personal history of transient ischemic attack (TIA), and cerebral infarction without residual deficits; Z83.3 Family history of diabetes mellitus
CPT/HCPCS: 36415; 51702; 70450; 71045; 76775; 80048; 80053; 81001; 82962; 83605; 85025; 87040; 87086; 93005; 94761; 96374; 97110; 97116; 97530; J1956

== ENCOUNTER 2017-10-07 11:21 | Inpatient (IN) | payer MEDICARE, MEDICAID ==
[~2017-10-07] VITALS: Ht 165.1 cm; Wt 76.5 kg
[~2017-10-07 11:21] MED LIST changes: -FAMO-12 PO; -HYDR50TA15 PO; -RIV15T PO
[2017-10-07] MEDS ORDERED: KETOROLAC TROMETH 60MG/2ML VIAL IM ONE (11:45)
[2017-10-07 12:05] LABS: Basophils # (auto) 0.1 uL; Basophils % (auto) 0.6 % (0.0-2.0); Eosinophils # (auto) 0.2 uL; Eosinophils % (auto) 1.1 % (0.0-7.0); Hematocrit 42.4 % (41.0-53.0); Hemoglobin 13.8 g/dL (13.5-17.5); Lymphocytes # (auto) 1.3 uL; Lymphocytes % (auto) 7.7 % (10.0-50.0); Mean Corpuscular Hemoglobin 29.9 pg (28.0-32.0); Mean Corpuscular Hgb Conc. 32.6 g/dL (32.0-36.0); Mean Corpuscular Volume 91.9 fL (80.0-100.0); Monocytes # (auto) 0.8 uL; Monocytes % (auto) 4.5 % (0.0-12.0); Neutrophils # (auto) 14.8 uL; Neutrophils % (auto) 86.1 % (37.0-80.0); Platelet Count (auto) 415 10^3/uL (140-450); Red Blood Cells 4.61 10^6/uL (4.5-5.90); Red Cell Distribution Width 15.4 % (11.8-14.3); White Blood Cell 17.2 10^3/uL (4.4-10.8)
[2017-10-07 12:17] LABS: Alanine Aminotransferase 43 U/L (16-61); Albumin 3.5 g/dL (3.4-5.0); Anion Gap 11 (5-15); Aspartate Aminotransferase 32 U/L (15-37); BUN/Creatinine Ratio 18.1; Blood Urea Nitrogen 34 mg/dL (7-18); Calcium 9.2 mg/dL (8.5-10.1); Carbon Dioxide 22 mmol/L (21-32); Chloride 106 mmol/L (98-107); GFR African American 44 mL/min; GFR Non-African American 36 mL/min; Glucose 112 mg/dL (74-106); Potassium 3.7 mmol/L (3.5-5.1); Sodium 139 mmol/L (136-145)
[2017-10-07 12:23] LABS: Alkaline Phosphatase 93 U/L (45-117); Total Protein 7.4 g/dL (6.4-8.2)
[2017-10-07] MEDS ORDERED: PIPERACILLIN-TAZOB 3.375GM 100 ML IV ONE (12:30)
[2017-10-07 12:47] LABS: Urine Bacteria NONE SEEN /hpf (None Seen); Urine Blood TRACE /uL (Negative); Urine Mucus FEW (None Seen); Urine Specific Gravity 1.022 (1.001-1.035); Urine WBC 12 /hpf (0 - 3)
[2017-10-07] MEDS ORDERED: KETOROLAC TROMETH 30 MG/ML 1ML VIAL IV ONE (13:00)
[2017-10-07] MEDS ORDERED: TEMAZEPAM 15 MG CAP PO PRN (14:30)
[2017-10-07] MEDS ORDERED: LACTULOSE 20Gm/30ML SOLN PO PRN (14:30)
[2017-10-07] MEDS ORDERED: ALBUTEROL SULF 2.5 MG/0.5ML(0.5%) NEB SOLN NEB PRN (14:30)
[2017-10-07] MEDS ORDERED: DEXTROSE (50%) 50ML SYRG IV PRN (14:30)
[2017-10-07] MEDS ORDERED: PROMETHAZINE HCL 25 MG/ML 1ML IV PRN (14:30)
[2017-10-07] MEDS ORDERED: MORPHINE SULFATE 8mg/ml INJ SDV IV PRN ×2 (14:30)
[2017-10-07] MEDS ORDERED: ACETAMINOPHEN 500 MG TAB PO PRN (14:30)
[2017-10-07] MEDS ORDERED: LORazepam 0.5 MG TAB PO PRN (14:30)
[2017-10-07] MEDS ORDERED: cefTRIAXone 1GM/10ml IVPUSH 10 ML IV ONE (14:30)
[2017-10-07] MEDS ORDERED: NITROGLYCERIN 0.4 MG SL TAB SL PRN (14:30)
[2017-10-07] MEDS ORDERED: LABETALOL HCL 5 MG/ML ML 20ML VIAL IV PRN (14:30)
[2017-10-07] MEDS ORDERED: HYDROcodone-ACET 5/325MG TAB PO PRN (14:30)
[2017-10-07 14:48] LABS: INR 1.27 (0.9-1.15); Partial Thromboplastin Time 40.1 sec (23.78-33.04); Prothrombin Time 13.4 sec (9.27-12.13)
[2017-10-07 15:08] LABS: Folate (Folic Acid) 14.41 ng/mL (5.38-24)
[2017-10-07] MEDS: SODIUM CHLORIDE 0.9% 1,000 ML IV SCH (15:08)
[2017-10-07] MEDS: ACCU-CHEK COMFORT CURVE STRIP VI SCH ×2 (18:24→21:26)
[2017-10-07] MEDS: InsuLIN REG 1unit/0.01ml Soln (100units/ml) SC SCH ×2 (18:24→21:26)
[2017-10-07] MEDS: ALBUTEROL SULF 2.5 MG/0.5ML(0.5%) NEB SOLN NEB SCH (19:16)
[2017-10-07] MEDS: IPRATROPIUM BROM 0.5 MG/2.5ML INH SOL NEB SCH (19:16)
[2017-10-07] MEDS: TAMSULOSIN HYDROCHLORIDE 0.4 MG CAP PO SCH (21:24)
[2017-10-07] MEDS: RIVAROXABAN 15 MG TAB PO SCH (21:25)
[2017-10-07] MEDS: hydrALAZINE HCL 25 MG TAB PO SCH (21:32)
[2017-10-07] MEDS ORDERED: ATORVASTATIN 20 MG TAB PO SCH (22:00)
[2017-10-07 22:13] VITALS: BP 137/81
[2017-10-08] MEDS: ALBUTEROL SULF 2.5 MG/0.5ML(0.5%) NEB SOLN NEB SCH ×4 (00:45→19:03)
[2017-10-08] MEDS: IPRATROPIUM BROM 0.5 MG/2.5ML INH SOL NEB SCH ×4 (00:45→19:03)
[2017-10-08 05:09] VITALS: BP 124/57
[2017-10-08 05:10] LABS: Basophils # (auto) 0.1 uL; Basophils % (auto) 1.2 % (0.0-2.0); Eosinophils # (auto) 0.2 uL; Eosinophils % (auto) 2.5 % (0.0-7.0); Hemoglobin 11.4 g/dL (13.5-17.5); Lymphocytes % (auto) 9.6 % (10.0-50.0); Mean Corpuscular Hemoglobin 30.8 pg (28.0-32.0); Mean Corpuscular Hgb Conc. 33.6 g/dL (32.0-36.0); Mean Corpuscular Volume 91.5 fL (80.0-100.0); Monocytes # (auto) 0.8 uL; Monocytes % (auto) 8.1 % (0.0-12.0); Neutrophils # (auto) 7.9 uL; Neutrophils % (auto) 78.6 % (37.0-80.0); Platelet Count (auto) 332 10^3/uL (140-450); Red Blood Cells 3.71 10^6/uL (4.5-5.90)
[2017-10-08 05:28] LABS: Albumin 2.7 g/dL (3.4-5.0); BUN/Creatinine Ratio 16.8; Bilirubin, Total 0.6 mg/dL (0.2-1.0); Calcium 8.1 mg/dL (8.5-10.1); Potassium 3.8 mmol/L (3.5-5.1); Total Protein 5.8 g/dL (6.4-8.2)
[2017-10-08] MEDS: SODIUM CHLORIDE 0.9% 1,000 ML IV SCH ×2 (06:22→15:17)
[2017-10-08] MEDS: InsuLIN REG 1unit/0.01ml Soln (100units/ml) SC SCH ×3 (06:43→18:49)
[2017-10-08] MEDS: ACCU-CHEK COMFORT CURVE STRIP VI SCH ×3 (06:44→17:00)
[2017-10-08 07:32] VITALS: BP 128/80
[2017-10-08 08:00] VITALS: BP 128/80
[2017-10-08] MEDS ORDERED: cefTRIAXone 1GM/10ml IVPUSH 10 ML IV SCH (09:00)
[2017-10-08] MEDS ORDERED: FAMOTIDINE 20 MG TAB PO SCH (10:00)
[2017-10-08] MEDS ORDERED: ASPirin 81 mg TAB PO SCH (10:00)
[2017-10-08] MEDS: hydrALAZINE HCL 25 MG TAB PO SCH (10:23)
[2017-10-08 11:47] VITALS: BP 137/78
[2017-10-08 16:33] VITALS: BP 148/86
[2017-10-08] MEDS: TAMSULOSIN HYDROCHLORIDE 0.4 MG CAP PO SCH (18:49)
[2017-10-08] MEDS: RIVAROXABAN 15 MG TAB PO SCH (18:49)
== END 2017-10-08 21:05 | disposition home or self-care (01) | DRG 871 ==
LOC: ER 11:21 → TELE 11:22 → TELE-WESTW 18:44
PROVIDERS: ADMIT Internal Medicine; ATTEND Family Medicine
DX: A41.9 Sepsis, unspecified organism (principal); I63.9 Cerebral infarction, unspecified; E11.21 Type 2 diabetes mellitus with diabetic nephropathy; I48.91 Unspecified atrial fibrillation; G81.94 Hemiplegia, unspecified affecting left nondominant side; E11.22 Type 2 diabetes mellitus with diabetic chronic kidney disease; I48.92 Unspecified atrial flutter; N39.0 Urinary tract infection, site not specified; N40.0 Benign prostatic hyperplasia without lower urinary tract symptoms; R26.9 Unspecified abnormalities of gait and mobility; E78.00 Pure hypercholesterolemia, unspecified; F03.90 Unspecified dementia, unspecified severity, without behavioral disturbance, psychotic disturbance, mood disturbance, and anxiety; K59.00 Constipation, unspecified; G47.00 Insomnia, unspecified; N18.3 Chronic kidney disease, stage 3 (moderate); I12.9 Hypertensive chronic kidney disease with stage 1 through stage 4 chronic kidney disease, or unspecified chronic kidney disease; J44.9 Chronic obstructive pulmonary disease, unspecified; M54.10 Radiculopathy, site unspecified; Z79.01 Long term (current) use of anticoagulants; Z82.49 Family history of ischemic heart disease and other diseases of the circulatory system; I25.2 Old myocardial infarction; Z83.3 Family history of diabetes mellitus; Z79.899 Other long term (current) drug therapy
CPT/HCPCS: 36415; 70450; 71045; 80053; 81001; 82550; 82607; 82746; 82962; 83036; 84443; 84484; 85025; 85610; 85652; 85730; 87040; 87081; 87086; 87088; 87186; 93005; 94640; 96374; 96375; J1815; J1885; J2543

== ENCOUNTER 2017-10-21 20:40 | Emergency (ER) | payer MEDICARE, MEDICAID ==
[~2017-10-21] VITALS: Ht 165.1 cm; Wt 74.8 kg
[2017-10-21 22:00] LABS: Basophils # (auto) 0.1 uL; Basophils % (auto) 1.4 % (0.0-2.0); Eosinophils # (auto) 0.5 uL; Eosinophils % (auto) 5.3 % (0.0-7.0); Hematocrit 36.8 % (41.0-53.0); Hemoglobin 12.2 g/dL (13.5-17.5); Lymphocytes # (auto) 1.7 uL; Lymphocytes % (auto) 18.6 % (10.0-50.0); Mean Corpuscular Hemoglobin 30.3 pg (28.0-32.0); Mean Corpuscular Hgb Conc. 33.3 g/dL (32.0-36.0); Mean Corpuscular Volume 91.1 fL (80.0-100.0); Monocytes # (auto) 0.7 uL; Monocytes % (auto) 7.9 % (0.0-12.0); Neutrophils # (auto) 5.9 uL; Neutrophils % (auto) 66.8 % (37.0-80.0); Platelet Count (auto) 284 10^3/uL (140-450); Red Blood Cells 4.04 10^6/uL (4.5-5.90); Red Cell Distribution Width 14.9 % (11.8-14.3); White Blood Cell 8.9 10^3/uL (4.4-10.8)
[2017-10-21 22:12] LABS: Urine Bacteria NONE SEEN /hpf (None Seen); Urine Blood Negative /uL (Negative); Urine Hyaline Cast FEW /lpf (0 - 2); Urine Mucus FEW (None Seen); Urine Specific Gravity 1.015 (1.001-1.035); Urine WBC 12 /hpf (0 - 3)
[2017-10-21 22:25] LABS: Albumin 3.3 g/dL (3.4-5.0); BUN/Creatinine Ratio 18.5; Calcium 8.4 mg/dL (8.5-10.1); Potassium 4.4 mmol/L (3.5-5.1); Total Protein 6.9 g/dL (6.4-8.2)
[2017-10-22 00:47] VITALS: BP 101/74
== END 2017-10-22 00:50 | disposition home or self-care (01) ==
LOC: ER 20:40
DX: Z46.6 Encounter for fitting and adjustment of urinary device (principal); N40.0 Benign prostatic hyperplasia without lower urinary tract symptoms; I48.91 Unspecified atrial fibrillation; E11.22 Type 2 diabetes mellitus with diabetic chronic kidney disease; N18.9 Chronic kidney disease, unspecified; I12.9 Hypertensive chronic kidney disease with stage 1 through stage 4 chronic kidney disease, or unspecified chronic kidney disease; I25.2 Old myocardial infarction; Z87.891 Personal history of nicotine dependence; Z87.440 Personal history of urinary (tract) infections; Z86.73 Personal history of transient ischemic attack (TIA), and cerebral infarction without residual deficits; Z79.899 Other long term (current) drug therapy
CPT/HCPCS: 36415; 51702; 80053; 81001; 84484; 85025

== ENCOUNTER 2017-10-31 18:38 | Emergency (ER) | payer MEDICARE, MEDICAID ==
[~2017-10-31] VITALS: Ht 165.1 cm; Wt 74.8 kg
[2017-10-31 18:48] VITALS: BP 145/70
== END 2017-11-01 02:59 | disposition left against medical advice (07) ==
LOC: ER 18:38
DX: R36.9 Urethral discharge, unspecified (principal); Z53.21 Procedure and treatment not carried out due to patient leaving prior to being seen by health care provider

== ENCOUNTER 2017-11-01 10:23 | Emergency (ER) | payer MEDICARE, MEDICAID ==
[~2017-11-01] VITALS: Ht 170.2 cm; Wt 66.2 kg
[2017-11-01 10:32] VITALS: BP 110/66
[2017-11-01] MEDS ORDERED: HYDROcodone-ACET 10/325MG TAB PO ONE (10:45)
== END 2017-11-01 15:20 | disposition home or self-care (01) ==
LOC: ER 10:23
DX: N43.3 Hydrocele, unspecified (principal); I12.9 Hypertensive chronic kidney disease with stage 1 through stage 4 chronic kidney disease, or unspecified chronic kidney disease; E11.22 Type 2 diabetes mellitus with diabetic chronic kidney disease; N18.9 Chronic kidney disease, unspecified; J44.9 Chronic obstructive pulmonary disease, unspecified; I48.91 Unspecified atrial fibrillation; I25.2 Old myocardial infarction
CPT/HCPCS: 76870

== ENCOUNTER → 2018-02-16 | Outpatient (CLI) | payer MEDICARE, MEDICAID ==
[~2018-02-16] MED LIST changes: +HYDR-4296 PO; -HYDR25TA35 PO
== END | disposition home or self-care (01) ==
LOC: LAB 15:14
PROVIDERS: ATTEND Internal Medicine
DX: E11.22 Type 2 diabetes mellitus with diabetic chronic kidney disease (principal); I13.0 Hypertensive heart and chronic kidney disease with heart failure and stage 1 through stage 4 chronic kidney disease, or unspecified chronic kidney disease; N18.3 Chronic kidney disease, stage 3 (moderate); I50.9 Heart failure, unspecified; E78.00 Pure hypercholesterolemia, unspecified; I48.91 Unspecified atrial fibrillation
CPT/HCPCS: 36415; 83036; 83880

== ENCOUNTER 2018-05-06 12:31 | Emergency (ER) | payer MEDICARE, MEDICAID ==
[~2018-05-06] VITALS: Ht 170.2 cm; Wt 72.6 kg
[~2018-05-06 12:31] MED LIST changes: +AML5T PO; +DONE5TAB31 PO; -DOXY-112 PO; -PRE1T PO
[2018-05-06 13:13] VITALS: BP 110/86
== END 2018-05-06 14:22 | disposition home or self-care (01) ==
LOC: EDBD 12:31 → ER 12:31
DX: S30.22XA Contusion of scrotum and testes, initial encounter (principal); N48.1 Balanitis; J44.9 Chronic obstructive pulmonary disease, unspecified; Z86.73 Personal history of transient ischemic attack (TIA), and cerebral infarction without residual deficits; I12.9 Hypertensive chronic kidney disease with stage 1 through stage 4 chronic kidney disease, or unspecified chronic kidney disease; N18.9 Chronic kidney disease, unspecified; Z87.891 Personal history of nicotine dependence; Z79.899 Other long term (current) drug therapy; W22.8XXA Striking against or struck by other objects, initial encounter; Y93.89 Activity, other specified; Y99.8 Other external cause status; Y92.89 Other specified places as the place of occurrence of the external cause

== ENCOUNTER 2019-06-05 20:12 | Inpatient (IN) | payer MEDICARE, MEDICAID ==
[~2019-06-05] VITALS: Ht 160 cm; Wt 72.5 kg
[~2019-06-05 20:12] MED LIST changes: +ACET-1158 PO; +ASPI-498 OR; +ATOR20TA PO; +DONETAB5 PO; +HYDR50TA15 PO
[2019-06-05 21:08] LABS: Basophils # (auto) 0.2 uL; Basophils % (auto) 1.1 % (0.0-2.0); Eosinophils # (auto) 0.3 uL; Eosinophils % (auto) 2.4 % (0.0-7.0); Hematocrit 32.7 % (41.0-53.0); Hemoglobin 10.8 g/dL (13.5-17.5); Lymphocytes # (auto) 0.8 uL; Lymphocytes % (auto) 6.3 % (10.0-50.0); Mean Corpuscular Hemoglobin 30.2 pg (28.0-32.0); Mean Corpuscular Hgb Conc. 32.8 g/dL (32.0-36.0); Mean Corpuscular Volume 91.9 fL (80.0-100.0); Monocytes # (auto) 0.4 uL; Monocytes % (auto) 3.1 % (0.0-12.0); Neutrophils # (auto) 11.5 uL; Neutrophils % (auto) 87.1 % (37.0-80.0); Platelet Count (auto) 402 10^3/uL (140-450); Red Blood Cells 3.56 10^6/uL (4.5-5.90); Red Cell Distribution Width 14.4 % (11.8-14.3); White Blood Cell 13.2 10^3/uL (4.4-10.8)
[2019-06-05 21:25] LABS: Calcium 8.6 mg/dL (8.5-10.1); Potassium 4.1 mmol/L (3.5-5.1)
[2019-06-05 21:29] LABS: Bilirubin, Total 0.4 mg/dL (0.2-1.0); Total Protein 6.6 g/dL (6.4-8.2)
[2019-06-05 21:31] LABS: BUN/Creatinine Ratio 14.8
[2019-06-05 21:33] LABS: Urine Bacteria NONE SEEN /hpf (None Seen); Urine Blood 3+ /uL (Negative); Urine Mucus FEW (None Seen); Urine Specific Gravity 1.018 (1.001-1.035); Urine WBC 106 /hpf (0 - 3)
[2019-06-06] MEDS ORDERED: metroNIDAZOLE 500MG/100ML 100 ML IV ONE (00:15)
[2019-06-06] MEDS ORDERED: ALBUTEROL SULF 2.5 MG/0.5ML(0.5%) NEB SOLN NEB PRN (03:00)
[2019-06-06] MEDS ORDERED: ACETAMINOPHEN 325 MG TAB PO PRN (03:00)
[2019-06-06] MEDS ORDERED: TEMAZEPAM 15 MG CAP PO PRN (03:00)
[2019-06-06] MEDS ORDERED: ONDANSETRON HCL 4 MG/2 ML VIAL IV PRN (03:00)
[2019-06-06] MEDS: cefTRIAXone 1GM/50ML D5W 50 ML IV SCH ×2 (03:00→09:24)
[2019-06-06] MEDS ORDERED: LOPERAMIDE HCL 2 MG CAP PO PRN (03:00)
[2019-06-06 03:20] LABS: Hemoglobin 10.3 g/dL (13.5-17.5)
[2019-06-06] MEDS: metroNIDAZOLE 500MG/100ML 100 ML IV SCH ×3 (04:57→21:45)
[2019-06-06] MEDS: amLODIPine BESYLATE 5 MG TAB PO SCH (09:25)
[2019-06-06] MEDS: hydrALAZINE HCL 25 MG TAB PO SCH ×2 (09:25→21:48)
[2019-06-06] MEDS: PANTOPRAZOLE 40 MG TAB PO SCH (10:02)
[2019-06-06 17:05] VITALS: BP 126/70
[2019-06-06] MEDS: TAMSULOSIN HYDROCHLORIDE 0.4 MG CAP PO SCH (17:42)
[2019-06-06] MEDS ORDERED: ASPirin 81 mg TAB PO ONE (18:45)
[2019-06-06] MEDS: ATORVASTATIN 20 MG TAB PO SCH (21:46)
[2019-06-06] MEDS: DONEPEZIL HYDROCHLORIDE 5 MG TAB PO SCH (21:48)
[2019-06-06 22:00] VITALS: BP 114/68
[2019-06-07 03:00] VITALS: BP 114/68
[2019-06-07 05:05] VITALS: BP 106/55
[2019-06-07] MEDS: metroNIDAZOLE 500MG/100ML 100 ML IV SCH (05:39)
[2019-06-07 06:36] LABS: Basophils # (auto) 0.1 uL; Eosinophils # (auto) 0.4 uL; Eosinophils % (auto) 4.3 % (0.0-7.0); Hematocrit 28.8 % (41.0-53.0); Hemoglobin 9.8 g/dL (13.5-17.5); Lymphocytes # (auto) 1.2 uL; Lymphocytes % (auto) 11.8 % (10.0-50.0); Mean Corpuscular Hemoglobin 31.2 pg (28.0-32.0); Mean Corpuscular Hgb Conc. 34.2 g/dL (32.0-36.0); Mean Corpuscular Volume 91.3 fL (80.0-100.0); Monocytes # (auto) 0.5 uL; Monocytes % (auto) 4.7 % (0.0-12.0); Neutrophils # (auto) 8.2 uL; Neutrophils % (auto) 78.2 % (37.0-80.0); Platelet Count (auto) 345 10^3/uL (140-450); Red Blood Cells 3.16 10^6/uL (4.5-5.90); Red Cell Distribution Width 14.4 % (11.8-14.3); White Blood Cell 10.4 10^3/uL (4.4-10.8)
[2019-06-07 06:51] LABS: BUN/Creatinine Ratio 16.5; Calcium 8.4 mg/dL (8.5-10.1); Potassium 3.3 mmol/L (3.5-5.1)
[2019-06-07 09:00] VITALS: BP 113/63
[2019-06-07] MEDS: PANTOPRAZOLE 40 MG TAB PO SCH (10:44)
[2019-06-07] MEDS: cefTRIAXone 1GM/50ML D5W 50 ML IV SCH (10:44)
[2019-06-07] MEDS: hydrALAZINE HCL 25 MG TAB PO SCH ×2 (10:45→22:28)
[2019-06-07] MEDS: amLODIPine BESYLATE 5 MG TAB PO SCH (10:45)
[2019-06-07] MEDS: ASPirin 81 mg TAB PO SCH (10:45)
[2019-06-07] MEDS ORDERED: POTASSIUM EFFERVESENT TAB 25 MEQ GT ONE (11:45)
[2019-06-07 13:00] VITALS: BP 94/63
[2019-06-07] MEDS: metroNIDAZOLE 500 MG TAB PO SCH ×2 (14:50→22:28)
[2019-06-07 17:00] VITALS: BP 113/61
[2019-06-07] MEDS: TAMSULOSIN HYDROCHLORIDE 0.4 MG CAP PO SCH (17:29)
[2019-06-07] MEDS: VANCOMYCIN HCL 125MG/5ML ORAL SOL PO SCH ×3 (17:29→22:00)
[2019-06-07 22:00] VITALS: BP 109/64
[2019-06-07] MEDS: DONEPEZIL HYDROCHLORIDE 5 MG TAB PO SCH (22:28)
[2019-06-07] MEDS: ATORVASTATIN 20 MG TAB PO SCH (22:29)
[2019-06-08 05:37] VITALS: BP 109/68
[2019-06-08] MEDS: VANCOMYCIN HCL 125MG/5ML ORAL SOL PO SCH ×3 (06:00→17:47)
[2019-06-08] MEDS: metroNIDAZOLE 500 MG TAB PO SCH ×2 (06:37→13:43)
[2019-06-08 07:41] LABS: Basophils # (auto) 0.1 uL; Basophils % (auto) 1.1 % (0.0-2.0); Eosinophils # (auto) 0.4 uL; Eosinophils % (auto) 4.9 % (0.0-7.0); Hematocrit 29.2 % (41.0-53.0); Hemoglobin 9.9 g/dL (13.5-17.5); Lymphocytes # (auto) 1.3 uL; Lymphocytes % (auto) 14.1 % (10.0-50.0); Mean Corpuscular Hgb Conc. 33.9 g/dL (32.0-36.0); Mean Corpuscular Volume 91.2 fL (80.0-100.0); Monocytes # (auto) 0.6 uL; Monocytes % (auto) 6.3 % (0.0-12.0); Neutrophils # (auto) 6.8 uL; Neutrophils % (auto) 73.6 % (37.0-80.0); Platelet Count (auto) 357 10^3/uL (140-450); Red Cell Distribution Width 14.6 % (11.8-14.3); White Blood Cell 9.2 10^3/uL (4.4-10.8)
[2019-06-08 08:07] LABS: BUN/Creatinine Ratio 20.8; Calcium 8.3 mg/dL (8.5-10.1); Potassium 3.9 mmol/L (3.5-5.1)
[2019-06-08 09:05] VITALS: BP 100/65
[2019-06-08] MEDS: ASPirin 81 mg TAB PO SCH (09:08)
[2019-06-08] MEDS: cefTRIAXone 1GM/50ML D5W 50 ML IV SCH (09:08)
[2019-06-08] MEDS: PANTOPRAZOLE 40 MG TAB PO SCH (09:09)
[2019-06-08] MEDS: hydrALAZINE HCL 25 MG TAB PO SCH (09:09)
[2019-06-08] MEDS: amLODIPine BESYLATE 5 MG TAB PO SCH (09:09)
[2019-06-08 12:00] VITALS: BP 110/66
[2019-06-08 17:00] VITALS: BP 111/68
[2019-06-08] MEDS: TAMSULOSIN HYDROCHLORIDE 0.4 MG CAP PO SCH (17:47)
== END 2019-06-08 20:05 | disposition home health service (06) | DRG 372 ==
LOC: ER 20:12 → OVERFLOW 20:13 → WEST WING 06-06 17:09
PROVIDERS: ADMIT Nurse Practitioner; ATTEND Internal Medicine Nephrology
DX: A04.72 Enterocolitis due to Clostridium difficile, not specified as recurrent (principal); I69.354 Hemiplegia and hemiparesis following cerebral infarction affecting left non-dominant side; N17.9 Acute kidney failure, unspecified; N30.21 Other chronic cystitis with hematuria; D72.829 Elevated white blood cell count, unspecified; N18.3 Chronic kidney disease, stage 3 (moderate); I48.91 Unspecified atrial fibrillation; F03.90 Unspecified dementia, unspecified severity, without behavioral disturbance, psychotic disturbance, mood disturbance, and anxiety; J44.9 Chronic obstructive pulmonary disease, unspecified; I73.9 Peripheral vascular disease, unspecified; I25.10 Atherosclerotic heart disease of native coronary artery without angina pectoris; N40.1 Benign prostatic hyperplasia with lower urinary tract symptoms; I12.9 Hypertensive chronic kidney disease with stage 1 through stage 4 chronic kidney disease, or unspecified chronic kidney disease; Z79.82 Long term (current) use of aspirin; Z82.49 Family history of ischemic heart disease and other diseases of the circulatory system; Z90.79 Acquired absence of other genital organ(s); R31.0 Gross hematuria
CPT/HCPCS: 36415; 51702; 80048; 80053; 81001; 82270; 85014; 85018; 85025; 87081; 87086; 87493; 96365; 96366; 96368; G0378; J0696; J3490

== ENCOUNTER 2019-07-16 15:39 | Emergency (ER) | payer MEDICARE, MEDICAID ==
[~2019-07-16] VITALS: Ht 152.4 cm; Wt 68.0 kg
[~2019-07-16 15:39] MED LIST changes: -ACET-1158 PO; -ATOR20TA PO; -DONETAB5 PO; -HYDR-4296 PO; -RIVA15TA PO
[2019-07-16] MEDS ORDERED: LIDOCAINE 1% HCL (LOCAL ANESTH.) INJ 20ML MDV ID ONE (21:15)
[2019-07-16] MEDS ORDERED: cefTRIAXone SOD 1,000 MG VL IM ONE (21:15)
[2019-07-16 21:20] LABS: Basophils # (auto) 0.1 uL; Basophils % (auto) 1.3 % (0.0-2.0); Eosinophils # (auto) 0.4 uL; Eosinophils % (auto) 3.6 % (0.0-7.0); Hematocrit 40.2 % (41.0-53.0); Hemoglobin 13.5 g/dL (13.5-17.5); Lymphocytes # (auto) 1.4 uL; Lymphocytes % (auto) 14.7 % (10.0-50.0); Mean Corpuscular Hemoglobin 29.9 pg (28.0-32.0); Mean Corpuscular Hgb Conc. 33.5 g/dL (32.0-36.0); Mean Corpuscular Volume 89.2 fL (80.0-100.0); Monocytes # (auto) 0.6 uL; Monocytes % (auto) 6.2 % (0.0-12.0); Neutrophils # (auto) 7.3 uL; Neutrophils % (auto) 74.2 % (37.0-80.0); Platelet Count (auto) 271 10^3/uL (140-450); Red Blood Cells 4.51 10^6/uL (4.5-5.90); Red Cell Distribution Width 14.6 % (11.8-14.3); White Blood Cell 9.9 10^3/uL (4.4-10.8)
[2019-07-16 21:39] LABS: Albumin 3.5 g/dL (3.4-5.0); Potassium 4.2 mmol/L (3.5-5.1)
[2019-07-16 21:41] LABS: BUN/Creatinine Ratio 19.1
[2019-07-16 21:43] LABS: Bilirubin, Total 0.6 mg/dL (0.2-1.0); Total Protein 7.6 g/dL (6.4-8.2)
[2019-07-16 22:21] LABS: Urine Bacteria MANY /hpf (None Seen); Urine Blood TRACE /uL (Negative); Urine Mucus FEW (None Seen); Urine Specific Gravity 1.024 (1.001-1.035); Urine WBC 774 /hpf (0 - 3); Urine WBC Clumps PRESENT /hpf (None Seen)
[2019-07-16 22:34] VITALS: BP 152/74
== END 2019-07-16 22:38 | disposition home or self-care (01) ==
LOC: ER 15:39
DX: N39.0 Urinary tract infection, site not specified (principal); I12.9 Hypertensive chronic kidney disease with stage 1 through stage 4 chronic kidney disease, or unspecified chronic kidney disease; N18.9 Chronic kidney disease, unspecified; Z86.73 Personal history of transient ischemic attack (TIA), and cerebral infarction without residual deficits; Z79.899 Other long term (current) drug therapy
CPT/HCPCS: 36415; 80053; 81001; 85025; 96372; 99283; J0696; J2001

== ENCOUNTER 2020-07-07 21:01 | Inpatient (IN) | payer MEDICARE, MEDICAID ==
[~2020-07-07] VITALS: Ht 160 cm; Wt 64.0 kg
[~2020-07-07 21:01] MED LIST changes: -DONE5TAB31 PO; +DONE5TAB80 PO; -FAM20T PO; +FAMO20TA10 PO
[2020-07-07] MEDS ORDERED: ACETAMINOPHEN 325 MG TAB PO ONE (21:30)
[2020-07-07 22:07] LABS: Basophils # (auto) 0 10 ^3/uL (0-0.2); Basophils % (auto) 0.2 % (0.0-2.0); Eosinophils # (auto) 0.1 10 ^3/uL (0-0.8); Eosinophils % (auto) 1.2 % (0.0-7.0); Hematocrit 41.4 % (41.0-53.0); Hemoglobin 13.8 g/dL (13.5-17.5); Lymphocytes # (auto) 0.4 10 ^3/uL (0.4-5.4); Lymphocytes % (auto) 5.1 % (10.0-50.0); Mean Corpuscular Hemoglobin 31.6 pg (28.0-32.0); Mean Corpuscular Hgb Conc. 33.3 g/dL (32.0-36.0); Mean Corpuscular Volume 94.8 fL (80.0-100.0); Monocytes # (auto) 0 10 ^3/uL (0-1.3); Monocytes % (auto) 0.3 % (0.0-12.0); Neutrophils # (auto) 6.7 10 ^3/uL (1.6-8.6); Neutrophils % (auto) 93.2 % (37.0-80.0); Nucleated Red Blood Cells % 0.1 %; Platelet Count (auto) 222 10^3/uL (140-450); Red Blood Cells 4.36 10^6/uL (4.5-5.90); Red Cell Distribution Width 14.8 % (11.8-14.3); White Blood Cell 7.3 10^3/uL (4.4-10.8)
[2020-07-07 22:27] LABS: Albumin 3.6 g/dL (3.4-5.0); Anion Gap 7 (5-15); Blood Urea Nitrogen 32 mg/dL (7-18); Calcium 8.2 mg/dL (8.5-10.1); Carbon Dioxide 26 mmol/L (21-32); Chloride 110 mmol/L (98-107); Glucose 102 mg/dL (74-106); Potassium 3.8 mmol/L (3.5-5.1); Sodium 143 mmol/L (136-145)
[2020-07-07 22:28] LABS: Alanine Aminotransferase 36 U/L (16-61); Aspartate Aminotransferase 28 U/L (15-37); BUN/Creatinine Ratio 16.4; GFR African American 42 mL/min; GFR Non-African American 35 mL/min; INR 1.08 (0.9-1.15); Partial Thromboplastin Time 24.2 sec (23.0-31.2)
[2020-07-07 22:31] LABS: Lactic Acid w/Reflex 2.5 mmol/L (0.4-2.0)
[2020-07-07 22:33] LABS: Alkaline Phosphatase 112 U/L (45-117); Total Protein 6.6 g/dL (6.4-8.2)
[2020-07-07] MEDS ORDERED: DexAMETHasone SOD PHOS 10MG/1ML VIAL INJ IV ONE (23:45)
[2020-07-07] MEDS ORDERED: SODIUM CHLORIDE 0.9% 1,000 ML IV ONE ×2 (23:45)
[2020-07-08] MEDS ORDERED: DOXYCYCLINE 100MG/250ML 250 ML IV ONE (01:15)
[2020-07-08] MEDS ORDERED: DexAMETHasone SOD PHOS 10MG/1ML VIAL INJ IV ONE (01:15)
[2020-07-08] MEDS ORDERED: MORPHINE SULF INJ 2 MG/ML SYRINGE 1ML IV PRN (02:30)
[2020-07-08] MEDS ORDERED: NITROGLYCERIN 0.4 MG SL TAB SL PRN (02:30)
[2020-07-08] MEDS ORDERED: ONDANSETRON HCL 4 MG/2 ML VIAL IV PRN (02:30)
[2020-07-08] MEDS ORDERED: TEMAZEPAM 15 MG CAP PO PRN (02:30)
[2020-07-08] MEDS ORDERED: ACETAMINOPHEN 325 MG TAB PO PRN (02:30)
[2020-07-08] MEDS ORDERED: ALBUTEROL SULF HFA 90MCG INH 200DOSE IN PRN (02:30)
[2020-07-08 02:50] VITALS: BP 135/66
[2020-07-08 05:13] LABS: Urine Bacteria MOD /hpf (None Seen); Urine Blood Negative /uL (Negative); Urine Specific Gravity 1.015 (1.001-1.035); Urine WBC 131 /hpf (0 - 3)
[2020-07-08] MEDS: cefTRIAXone 1GM/50ML D5W 50 ML IV SCH (09:00)
[2020-07-08] MEDS: ENOXAPARIN SOD 40 MG/0.4 ML SYRINGE SC SCH (10:00)
[2020-07-08] MEDS ORDERED: CHOLECALCIFEROL (VITD3) 2,000 UNIT CAP/TAB PO SCH (10:00)
[2020-07-08] MEDS: ASPirin 81 mg TAB PO SCH (10:00)
[2020-07-08] MEDS: PANTOPRAZOLE 40 MG TAB PO SCH (10:00)
[2020-07-08] MEDS ORDERED: ZINC SULFATE 220mg CAP or TAB PO SCH (10:00)
[2020-07-08] MEDS ORDERED: amLODIPine BESYLATE 5 MG TAB PO SCH (10:00)
[2020-07-08] MEDS ORDERED: ASCORBIC ACID 1,000 MG TAB PO SCH (10:00)
[2020-07-08] MEDS ORDERED: DexAMETHasone SOD PHOS 10MG/1ML VIAL INJ IV SCH (10:00)
[2020-07-08] MEDS: TAMSULOSIN HYDROCHLORIDE 0.4 MG CAP PO SCH (18:43)
[2020-07-08 20:00] VITALS: BP 158/82
[2020-07-08] MEDS: ATORVASTATIN 20 MG TAB PO SCH (21:09)
[2020-07-08] MEDS: DONEPEZIL HYDROCHLORIDE 5 MG TAB PO SCH (21:10)
[2020-07-08] MEDS ORDERED: DOXYCYCLINE 100MG/250ML 250 ML IV SCH (22:00)
[2020-07-08 22:44] VITALS: BP 154/100
[2020-07-09 05:22] VITALS: BP 139/84
[2020-07-09 05:30] LABS: Basophils # (auto) 0 10 ^3/uL (0-0.2); Basophils % (auto) 0.2 % (0.0-2.0); Eosinophils # (auto) 0 10 ^3/uL (0-0.8); Eosinophils % (auto) 0.1 % (0.0-7.0); Hematocrit 37.5 % (41.0-53.0); Hemoglobin 12.6 g/dL (13.5-17.5); Lymphocytes # (auto) 0.8 10 ^3/uL (0.4-5.4); Lymphocytes % (auto) 5.5 % (10.0-50.0); Mean Corpuscular Hemoglobin 31.6 pg (28.0-32.0); Mean Corpuscular Hgb Conc. 33.6 g/dL (32.0-36.0); Mean Corpuscular Volume 93.9 fL (80.0-100.0); Monocytes # (auto) 0.7 10 ^3/uL (0-1.3); Monocytes % (auto) 4.7 % (0.0-12.0); Neutrophils # (auto) 13.1 10 ^3/uL (1.6-8.6); Neutrophils % (auto) 89.5 % (37.0-80.0); Platelet Count (auto) 208 10^3/uL (140-450); Red Blood Cells 3.99 10^6/uL (4.5-5.90); Red Cell Distribution Width 14.9 % (11.8-14.3); White Blood Cell 14.6 10^3/uL (4.4-10.8)
[2020-07-09 05:46] LABS: Albumin 3.3 g/dL (3.4-5.0); Calcium 8.8 mg/dL (8.5-10.1); Potassium 4.6 mmol/L (3.5-5.1)
[2020-07-09 05:50] LABS: BUN/Creatinine Ratio 22.9; Bilirubin, Total 0.6 mg/dL (0.2-1.0); Total Protein 6.4 g/dL (6.4-8.2)
[2020-07-09 08:24] VITALS: BP 159/96
[2020-07-09] MEDS: cefTRIAXone 1GM/50ML D5W 50 ML IV SCH (10:15)
[2020-07-09] MEDS: ASPirin 81 mg TAB PO SCH (10:54)
[2020-07-09] MEDS: PANTOPRAZOLE 40 MG TAB PO SCH (10:54)
[2020-07-09] MEDS: ENOXAPARIN SOD 40 MG/0.4 ML SYRINGE SC SCH (10:55)
[2020-07-09] MEDS ORDERED: SOD CHL 0.45% 1,000 ML IV ONE (11:00)
[2020-07-09] MEDS: ALBUTEROL SULF 2.5 MG/0.5ML(0.5%) NEB SOLN NEB SCH ×2 (12:45→22:31)
[2020-07-09] MEDS: IPRATROPIUM BROM 0.5 MG/2.5ML INH SOL NEB SCH ×2 (12:45→22:31)
[2020-07-09 12:51] VITALS: BP 158/78
[2020-07-09 16:32] VITALS: BP 142/81
[2020-07-09] MEDS: TAMSULOSIN HYDROCHLORIDE 0.4 MG CAP PO SCH (17:28)
[2020-07-09 22:00] VITALS: BP_SYST 109; BP_SYST 148; BP_DIAS 76; BP_DIAS 80
[2020-07-09] MEDS: ATORVASTATIN 20 MG TAB PO SCH (22:09)
[2020-07-09] MEDS: DONEPEZIL HYDROCHLORIDE 5 MG TAB PO SCH (22:09)
[2020-07-09 22:38] LABS: Urine Bacteria NONE SEEN /hpf (None Seen); Urine Blood Negative /uL (Negative); Urine Specific Gravity 1.017 (1.001-1.035); Urine WBC 20 /hpf (0 - 3)
[2020-07-10 04:46] VITALS: BP 148/70
[2020-07-10] MEDS: IPRATROPIUM BROM 0.5 MG/2.5ML INH SOL NEB SCH ×3 (06:28→22:34)
[2020-07-10] MEDS: ALBUTEROL SULF 2.5 MG/0.5ML(0.5%) NEB SOLN NEB SCH ×3 (06:28→22:34)
[2020-07-10 06:39] LABS: Basophils # (auto) 0.1 10 ^3/uL (0-0.2); Basophils % (auto) 0.6 % (0.0-2.0); Eosinophils # (auto) 0.2 10 ^3/uL (0-0.8); Eosinophils % (auto) 1.4 % (0.0-7.0); Hematocrit 40.1 % (41.0-53.0); Hemoglobin 13.4 g/dL (13.5-17.5); Lymphocytes # (auto) 1.1 10 ^3/uL (0.4-5.4); Lymphocytes % (auto) 10.3 % (10.0-50.0); Mean Corpuscular Hemoglobin 31.1 pg (28.0-32.0); Mean Corpuscular Hgb Conc. 33.3 g/dL (32.0-36.0); Mean Corpuscular Volume 93.2 fL (80.0-100.0); Monocytes # (auto) 0.6 10 ^3/uL (0-1.3); Monocytes % (auto) 5.3 % (0.0-12.0); Neutrophils % (auto) 82.4 % (37.0-80.0); Nucleated Red Blood Cells % 0.1 %; Platelet Count (auto) 238 10^3/uL (140-450); Red Cell Distribution Width 14.6 % (11.8-14.3)
[2020-07-10 09:22] VITALS: BP 144/80
[2020-07-10] MEDS: cefTRIAXone 1GM/50ML D5W 50 ML IV SCH (09:34)
[2020-07-10] MEDS: amLODIPine BESYLATE 5 MG TAB PO SCH (09:35)
[2020-07-10] MEDS: PANTOPRAZOLE 40 MG TAB PO SCH (09:35)
[2020-07-10] MEDS: ASPirin 81 mg TAB PO SCH (09:35)
[2020-07-10] MEDS ORDERED: ENOXAPARIN SOD 30 MG/0.3 ML SYRINGE SC SCH (10:00)
[2020-07-10 10:54] LABS: Calcium 8.7 mg/dL (8.5-10.1); Potassium 3.5 mmol/L (3.5-5.1)
[2020-07-10 10:56] LABS: BUN/Creatinine Ratio 18.9
[2020-07-10] MEDS ORDERED: LORazepam 2MG/ML-1ML VIAL IV ONE (11:00)
[2020-07-10 12:52] VITALS: BP 135/75
[2020-07-10 16:35] VITALS: BP 131/80
[2020-07-10] MEDS: TAMSULOSIN HYDROCHLORIDE 0.4 MG CAP PO SCH (18:31)
[2020-07-10] MEDS: DONEPEZIL HYDROCHLORIDE 5 MG TAB PO SCH (21:31)
[2020-07-10] MEDS: ATORVASTATIN 20 MG TAB PO SCH (21:32)
[2020-07-10 22:17] VITALS: BP 131/80
[2020-07-11] MEDS: ALBUTEROL SULF 2.5 MG/0.5ML(0.5%) NEB SOLN NEB SCH ×3 (06:19→23:04)
[2020-07-11] MEDS: IPRATROPIUM BROM 0.5 MG/2.5ML INH SOL NEB SCH ×3 (06:19→23:04)
[2020-07-11] MEDS: ENOXAPARIN SOD 30 MG/0.3 ML SYRINGE SC SCH (08:40)
[2020-07-11] MEDS: cefTRIAXone 1GM/50ML D5W 50 ML IV SCH (08:40)
[2020-07-11] MEDS: ASPirin 81 mg TAB PO SCH (08:41)
[2020-07-11] MEDS: amLODIPine BESYLATE 5 MG TAB PO SCH (08:42)
[2020-07-11] MEDS: PANTOPRAZOLE 40 MG TAB PO SCH (08:42)
[2020-07-11 09:00] VITALS: BP 108/67
[2020-07-11 13:00] VITALS: BP 93/55
[2020-07-11 18:11] VITALS: BP 105/78
[2020-07-11] MEDS: TAMSULOSIN HYDROCHLORIDE 0.4 MG CAP PO SCH (18:18)
[2020-07-11] MEDS: DONEPEZIL HYDROCHLORIDE 5 MG TAB PO SCH (21:51)
[2020-07-11] MEDS: ATORVASTATIN 20 MG TAB PO SCH (21:51)
[2020-07-11 22:00] VITALS: BP 108/67
[2020-07-12 05:03] VITALS: BP 118/58
[2020-07-12] MEDS: IPRATROPIUM BROM 0.5 MG/2.5ML INH SOL NEB SCH ×2 (07:00→14:25)
[2020-07-12] MEDS: ALBUTEROL SULF 2.5 MG/0.5ML(0.5%) NEB SOLN NEB SCH ×2 (07:00→14:25)
[2020-07-12 08:00] VITALS: BP 129/85
[2020-07-12 09:00] VITALS: BP 129/85
[2020-07-12] MEDS: cefTRIAXone 1GM/50ML D5W 50 ML IV SCH (10:07)
[2020-07-12] MEDS: ASPirin 81 mg TAB PO SCH (10:07)
[2020-07-12] MEDS: PANTOPRAZOLE 40 MG TAB PO SCH (10:08)
[2020-07-12] MEDS: ENOXAPARIN SOD 30 MG/0.3 ML SYRINGE SC SCH (10:08)
[2020-07-12] MEDS ORDERED: AMOX500T86 PO (11:42)
[2020-07-12 13:00] VITALS: BP 131/72
[2020-07-12 17:00] VITALS: BP 158/69
== END 2020-07-12 17:43 | disposition home health service (06) | DRG 682 ==
LOC: EDBD 21:01 → ER 21:03 → TELE 21:04 → TELE-CENTR 07-08 18:27
PROVIDERS: ADMIT Nurse Practitioner; ATTEND Internal Medicine
DX: N17.0 Acute kidney failure with tubular necrosis (principal); G93.41 Metabolic encephalopathy; N39.0 Urinary tract infection, site not specified; I48.19 Other persistent atrial fibrillation; F03.90 Unspecified dementia, unspecified severity, without behavioral disturbance, psychotic disturbance, mood disturbance, and anxiety; Z20.822 Contact with and (suspected) exposure to COVID-19; I12.9 Hypertensive chronic kidney disease with stage 1 through stage 4 chronic kidney disease, or unspecified chronic kidney disease; N18.32 Chronic kidney disease, stage 3b; Z66 Do not resuscitate; N40.0 Benign prostatic hyperplasia without lower urinary tract symptoms; Z82.49 Family history of ischemic heart disease and other diseases of the circulatory system; Z86.73 Personal history of transient ischemic attack (TIA), and cerebral infarction without residual deficits; J44.9 Chronic obstructive pulmonary disease, unspecified
CPT/HCPCS: 36415; 70551; 71045; 76775; 80048; 80053; 80320; 81001; 82728; 83605; 83735; 83880; 84484; 85025; 85379; 85610; 85730; 87040; 87086; 87426; 93005; 93886; 94640; 96361; 96365; 96367; 96372; 96375; 96376; 97110; 97116; 97530; G0378; J0696; J1100; J2405; J3490

== ENCOUNTER 2021-03-23 19:36 | Emergency (ER) | payer MEDICARE, MEDICAID ==
[~2021-03-23] VITALS: Ht 167.6 cm; Wt 64.9 kg
[~2021-03-23 19:36] MED LIST changes: +AMOX500T86 PO; -HYDR50TA15 PO
[2021-03-23] MEDS ORDERED: TETANUS-DIPTH-ACEL PERTUSSIS 0.5ML SYR Tdap IM ONE (22:15)
[2021-03-23] MEDS ORDERED: LIDOCAINE 1% HCL (LOCAL ANESTH.) INJ 20ML MDV IJ ONE (23:30)
[2021-03-24 04:00] VITALS: BP 149/86
== END 2021-03-24 07:18 | disposition home or self-care (01) ==
LOC: EDUNIT# 19:36 → EDBD 19:36 → ER 19:48
DX: S01.112A Laceration without foreign body of left eyelid and periocular area, initial encounter (principal); I10 Essential (primary) hypertension; F03.90 Unspecified dementia, unspecified severity, without behavioral disturbance, psychotic disturbance, mood disturbance, and anxiety; Z87.440 Personal history of urinary (tract) infections; Z79.899 Other long term (current) drug therapy; Z86.73 Personal history of transient ischemic attack (TIA), and cerebral infarction without residual deficits; W18.39XA Other fall on same level, initial encounter; Y93.89 Activity, other specified; Y92.89 Other specified places as the place of occurrence of the external cause; Y99.8 Other external cause status
CPT/HCPCS: 12013; 70450; 70486; 71045; 72125; 72170; 90471; 90715; 99285; J2001